=== PATIENT | male | born 1965 | race Caucasian/White ===

== ENCOUNTER → 2018-07-05 12:39 | Outpatient (CLI) | payer OTHER, SELFPAY ==
[2018-07-04 15:54] VITALS: BMI 38.1
--- NOTE | 2018-07-05 13:04 | RAD_ITS ---
STUDY: X-RAY CHEST REASON FOR EXAM: Male, 53 years old. Shortness of breath x 4-5 days. TECHNIQUE: PA and lateral views of the chest. COMPARISON: None. FINDINGS: There is hyperinflation of the lungs, suggesting obstructive lung disease. Subtle 1.5 cm flame-shaped density versus summation artifact in the right apex on the frontal view. A similar density is seen in the mid lung just posterior to the montrell at the level of the minor fissure on the lateral view. There is no demonstrated pleural abnormality. Normal size heart. Normal mediastinum. Borderline left hilar fullness. Normal visualized pulmonary arteries. Normal visualized aortic arch and descending thoracic aorta. Normal visualized thoracic spine. Normal visualized ribs, clavicles, and shoulders. There is no demonstrated abnormality of the visualized soft tissue structures of the upper abdomen. RAD/Chest PA and Lateral IMPRESSION: 1. Hyperexpanded, suggesting obstructive pulmonary disease. 2. No pneumonic infiltrate or CHF. 3. Small, subtle ill-defined densities versus summation artifacts, as described. Comparison with any previous outside studies would be useful. If none are available, one might consider short-term interval follow-up to document clearing or stability. Electronically Signed: Antoni Chi MD at 12:24 EST , Service support ,
[2018-07-05 13:42] LABS: Basophil# 0.04 X10^3/uL; Basophil% 0.5 % (0-1); Mean Corpuscular Volume 86.7 fL (80-94); Monocyte# 1.02 X10^3/uL
[2018-07-05 13:45] LABS: Hematocrit 52.1 % (40-54); Hemoglobin 17.3 g/dl (13.0-16.5); Mean Corp Hgb Conc 33.2 g/gl (32-36); Mean Corpuscular Hgb 28.8 pg (27.0-32.0); Red Blood Count 6.01 M/mm3 (4.6-6.2); White Blood Count 8.2 K/mm3 (4.4-11.0)
[2018-07-05 13:46] LABS: Eosinophils% 0.1 % (0-5); Lymphocyte % 20.4 % (19-41); Monocyte% 12.5 % (0-10); Neutrophil # 5.42 X10^3/uL (2.7-7.7); Neutrophil % 66.4 % (47-70); POSITIVE COUNT NO; POSITIVE DIFFERENTIAL NO; POSITIVE MORPHOLOGY NO; Platelet Count 225 K/mm3 (150-450); RBC Distribution Width CV 13.7 % (11.6-14.6)
[2018-07-05 13:47] LABS: Absolute Neutrophil Count 0.4 X10^3/uL (2.0-7.7); Eosinophil# 0.01 X10^3/uL; Lymphocyte # 1.67 X10^3/ul (4.0)
[2018-07-05 13:48] LABS: Absolute Lymphocyte Count 0.13 X10^3/ul (0.83-4.51)
[2018-07-05 14:13] LABS: BUN 14 mg/dL (7-18); Creatinine, Serum 0.97 mg/dL (0.70-1.30); Glucose 167 mg/dL (74-106)
[2018-07-05 14:14] LABS: Anion Gap 10 (5-15); BUN/Creat Ratio 14.4 RATIO (10-20); Calcium,Total 9.2 mg/dL (8.5-10.1); Chloride 102 mmol/L (98-107); EST Glomerular Filtration Rate 85 mL/min (>60); Est Glom Filt Rate - Afr Amer 103 mL/min (>60); Potassium 4.1 mmol/L (3.5-5.1); Sodium Level 138 mmol/L (136-145)
[2018-07-05 14:25] LABS: BNP,B-Type NATRIURETIC PEPTIDE 7.4 pg/mL (0-100)
[2018-07-05 15:04] LABS: HIV - WCH Non-Reactive (Nonreactive)
[2018-07-06 14:55] LABS: Testosterone, Serum 4226 297 ng/dL (264-916); Treponema palladium Ab (FTA) Non Reactive (Non Reactive)
--- OUTSIDE RECORDS SUMMARY | 2018-08-21 08:03 | XMS RPT_ITS ---
:1965 Author Organization [facility] Care Team Providers Name Role Phone Samson Blair Attending Unavailable Samson Blair Attending Unavailable Samson Blair Referring Unavailable Samson Blair Primary Care Unavailable PROBLEMS PROBLEMS DATE TYPE CONDITION / CODE ATTENDING STATUS SOURCE 07/12/2018 Unknown Z20.2 - Contact Johnnie [facility] with and Community (suspected) Hospital exposure to Repository infections with a predominantly sexual mode of transmission / Z20.2(ICD-10) 07/12/2018 Unknown R06.02 - Shortness Johnnie [facility] of breath / Community R06.02(ICD-10) Hospital Repository 07/12/2018 Unknown R06.00 - Dyspnea, Brown, Samson [facility] unspecified / Community R06.00(ICD-10) Hospital Repository 07/12/2018 Unknown R06.01 - Orthopnea Brown, [facility] / R06.01(ICD-10) [facility] Hospital Repository 07/12/2018 Unknown N52.9 - Male Brown, [facility]on [facility] erectile Community dysfunction, Hospital unspecified / Repository N52.9(ICD-10) PROCEDURES PROCEDURES No Procedure Records FoundRESULTS RESULTS CHEST PA AND LATERAL Observed: 07/05/2018 Status: F Source: SHI 1:04 PM [facility] REPOSITORY [facility] [address] [place] [address] Chest PA and Lateral MR#: [id number] Acct: [id number] Name: SAVANA DAILEY V Rep #: [id number] : 1965 M 53 From: Isaac Chi MD PCP: Samson Blair DO Status: REG CLI Study: Chest PA and Lateral Date of Exam: 07/05/18 Exam# [id number] Ordering Dr: Samson Blair DO STUDY: X-RAY CHEST REASON FOR EXAM: Male, 53 years old. Shortness of breath x 4-5 days. TECHNIQUE: PA and lateral views of the chest. COMPARISON: None. FINDINGS: There is hyperinflation of the lungs, suggesting obstructive lung disease. Subtle 1.5 cm flame-shaped density versus summation artifact in the right apex on the frontal view. A similar density is seen in the mid lung just posterior to the montrell at the level of the minor fissure on the lateral view. There is no demonstrated pleural abnormality. Normal size heart. Normal mediastinum. Borderline left hilar fullness. Normal visualized pulmonary arteries. Normal visualized aortic arch and descending thoracic aorta. Normal visualized thoracic spine. Normal visualized ribs, clavicles, and shoulders. There is no demonstrated abnormality of the visualized soft tissue structures of the upper abdomen. RAD/Chest PA and Lateral IMPRESSION: 1. Hyperexpanded, suggesting obstructive pulmonary disease. 2. No pneumonic infiltrate or CHF. 3. Small, subtle ill-defined densities versus summation artifacts, as described. Comparison with any previous outside studies would be useful. If none are available, one might consider short-term interval follow-up to document clearing or stability. Electronically Signed: Antoni Chi MD at 12:24 EST , Service support , CC: Samson Blair DO Hand Thermal Cutter: Signed CBC W/DIFF, AUTOMATED Collected: 07/05/2018 Status: F Source: SHI 12:47 PM [facility] REPOSITORY TYPE CODE TESTS RESULT OUT OF RANGE REFERENCE UNITS LAB L100.1000 4.4-11.0 K/mm3 Normal WBC 8.2 LAB L100.1200 4.6-6.2 M/mm3 Normal RBC 6.01 LAB L100.1300 13.0-16.5 g/dl High HGB 17.3 LAB L100.1400 40-54 % Normal HCT 52.1 LAB L100.1500 80-94 fL Normal MCV 86.7 LAB L100.1600 27.0-32.0 pg Normal MCH 28.8 LAB L100.1700 32-36 g/gl Normal MCHC 33.2 LAB L100.1810 11.6-14.6 % Normal RDW CV 13.7 LAB L100.1820 35.1-43.9 fl Normal RDW SD 43.0 LAB L100.1900 150-450 K/mm3 Normal PLT 225 LAB L100.2000 6.2-12.0 fl Normal MPV 11.0 LAB L100.2100 47-70 % Normal NEUT% 66.4 LAB L100.2200 19-41 % Normal LY% 20.4 LAB L100.2300 0-10 % High MONO% 12.5 LAB L100.2400 0-5 % Normal EO% 0.1 LAB L100.2500 0-1 % Normal BASO% 0.5 LAB L100.2550 0.0-0.9 % Normal IM GRAN % 0.100 Result Comment: IG% - Immature Granulocytes (promyelocytes, myelocytes and metamyelocytes) > 1% indicates that a LEFT SHIFT is Present. LAB L100.2620 2.0-7.7 X10 3/uL Low Absolute Neut 0.4 LAB L100.2720 0.83-4.51 X10 3/ul Low Absolute Lymph 0.13 Performed By: #### L100.0100 #### [facility] [address] [place], [place], [id number] BASIC METABOLIC Collected: 07/05/2018 Status: F Source: SHI PROFILE (BMP) 12:47 PM [facility] REPOSITORY TYPE CODE TESTS RESULT OUT OF RANGE REFERENCE UNITS LAB L501.0100 74-106 mg/dL High GLU 167 Result Comment: Fasting Glucose result greater than or equal to 126 mg/dL suggests DIABETES MELLITUS per A.D.A. criteria. Please note revised GLUCOSE reference range effective 2017. LAB L501.1000 7-18 mg/dL Normal BUN 14 LAB L501.1100 0.70-1.30 mg/dL Normal CREAT,SERUM 0.97 Result Comment: The validity of the calculated GFR AND GFRAA in patients over 70 years has not been determined. Clinical correlation is essential. LAB L501.1110 >60 mL/min Normal EST GFR 85 Result Comment: Non- GFR Calc LAB L501.1115 >60 mL/min Normal EST GFR - AA 103 Result Comment: GFR Calc LAB L501.1300 10-20 RATIO Normal BUN/CRE 14.4 LAB L501.2200 8.5-10.1 mg/dL CA Normal 9.2 LAB L501.5300 136-145 mmol/L NA Normal 138 LAB L501.5600 3.5-5.1 mmol/L K Normal 4.1 LAB L501.5900 98-107 mmol/L CL Normal 102 LAB L501.6100 21.0-32.0 mmol/L Normal CO2 26.0 LAB L501.6200 5-15 Normal GAP 10 Performed By: #### L500.2500 #### [facility] [address] [facility] [place], [place], [address] BNP,B-TYPE NATRIURETIC Collected: 07/05/2018 Status: F Source: COMPTON PEPTIDE 12:47 PM [facility] REPOSITORY TYPE CODE TESTS RESULT OUT OF RANGE REFERENCE UNITS LAB L503.6620 0-100 pg/mL Normal B-TYPE 7.4 ALEJANDRO PEP Performed By: #### L503.6620 #### [facility] [address] [place], [address] HIV - [facility] Collected: 07/05/2018 Status: F Source: COMPTON 12:47 PM [facility] REPOSITORY TYPE CODE TESTS RESULT OUT OF RANGE REFERENCE UNITS LAB L3890.6005 Nonreactive Normal HIV - [facility] Non-Reactive Performed By: #### L3890.6005 #### [facility] [address] [facility] [facility] [place], [address] TREPONEMA PALLADIUM AB Collected: 07/05/2018 Status: F Source: SHI (FTA) 12:47 PM [facility] REPOSITORY TYPE CODE TESTS RESULT OUT OF RANGE REFERENCE UNITS LAB L801.4400 Non Reactive Normal FTA Non Reactive ABS Result Comment: Performed at: - [facility] [id number] Custodian: Arnulfo Alcaraz PhD, Phone: [phone] Performed By: #### L801.4400, L3100.5200 #### [facility] (refer to report for specific site) refer to report for address and phone number TESTOSTERONE, SERUM 4226 Collected: 07/05/2018 Status: F Source: SHI 12:47 PM [facility] REPOSITORY TYPE CODE TESTS RESULT OUT OF RANGE REFERENCE UNITS LAB L3100.5200 264-916 ng/dL Normal TESTOSTER 4226 297 Result Comment: Adult male reference interval is based on a population of healthy nonobese males (BMI <30) between 19 and 39 years old. Lisa et.al. JCEM 2017,102;9346-8744. PMID: [id number]. Performed By: #### L801.4400, L3100.5200 #### [facility] (refer to report for specific site) refer to report for address and phone number INTERNAL MEDICINE Observed: 07/04/2018 Status: F Source: SHI OFFICE VISIT 4:28 PM [facility] REPOSITORY [facility] Pending sale to [facility] [place] [address] [place] [address] OFFICE VISIT Date of Service: 07/04/18 MR#: [id number] Acct: [id number] Name: SAVANA DAILEY Christine Rep #: [id number] : 1965 Provider: Samson Blair DO Age/Sex: 53/M [place] [facility] [place] Status: Signed Intake Vital Signs07/04/18 Height 5 ft 9.5 in 07/04/18 Weight: 262 lb 07/04/18 Body Mass Index (BMI) 38.1 07/04/18 Blood Pressure 144/83 H 07/04/18 Blood Pressure Location Rt brachial Intake Visit Reasons: EST CARE Chief Complaint: Est Care - Check up - cough Is patient in pain?: No Allergies No Known Allergies Allergy (Unverified 07/04/18 15:56) Medications amoxicillin 500 mg capsule 500 mg PO TID #30 cap 07/04/18 [Rx Confirmed 07/04/18] furosemide 40 mg tablet 40 mg PO DAILY #30 tab 07/04/18 [Rx Confirmed 07/04/18] prednisone 10 mg tablets in a dose pack See Rx Instructions PO PER PKG DIR #21 tab 07/04/18 [Rx Confirmed 07/04/18] PFSH Medical History Seasonal allergies (Acute) Family History Father Cancer Mother Hypertension Social History Smoking Status: Heavy Smoker (>10/day) alcohol intake: never substance use type: does not use what type of physical activity do you participate in: none HPI HPI Chief Complaint: Est Care - Check up - cough Details: SAVANA DAILEY, is a 53 M who presents to the office today for shortness of breath and a chronic cough. He also has some concerns regards to STD exposure and he has had a gonorrhea and a a test for STDs in his urine but has not had any blood work. He is also concerned about sexual dysfunction but the main problem is his progressive shortness of breath he had taken Lasix for fluid retention but is not taken it for several days as he has been out of medication. ROS Const Constitutional: No chills, fatigue, fever(s), frequent falls, malaise, weakness, sleep problems or change in appetite Eyes Eyes: No blurry vision, change in vision, double vision, discharge or visual disturbances ENT ENT: No abnormal hearing, ear pain, ear pressure, tinnitus or dizziness/vertigo Resp Respiratory: Positive for cough Cough: Yes productive and non-productive and shortness of breath; no wheezing Cardio Cardiology: No chest pain at rest, chest pain with exertion, shortness of breath, dyspnea on exertion, generalized swelling, irregular heart rhythm, lightheadedness, orthopnea, fast heart rate or palpitations Gastro GI: No abdominal pain, change in bowel habits, constipation, diarrhea, nausea/dyspepsia or vomiting Genitourinary Male: No difficulty urinating, burning urination, painful urination, urinary incontinence, urinary frequency, urinary urgency, urinary hesitancy, urinary retention, blood in urine, Frequent nighttime urination/ nocturia, sexual problems, testicle lump or testicle pain Musc Musculoskeletal: No joint pain, back pain, joint swelling, limited range of motion, numbness or tingling Skin Skin: No change in skin color, itching, rash or wounds Breast Breast: No breast lump or breast pain Neuro Neurology: No frequent falls, weakness, abnormal hearing, numbness, tingling, unsteady gait/balance, dizziness, loss of vision, memory loss or visual disturbances Psych Psychiatric: No memory loss, No anxiety, No change in appetite, No depression, No Thoughts of harming yourself/Others Endo Endocrine: No fatigue, heat intolerance, increased thirst/drinking, increased hunger or increased urination Aller/Imm Allergy/Immunologic: No wheezing, itchy eyes or seasonal allergy symptoms Osmin/Lymp Hematologic/Lymphatic: No easy bleeding, easy bruising or enlarged lymph nodes Exam Const General: cooperative, in distress mild Nutritional Appearance: well nourished Orientation: oriented x3 HENMT Head: normal to inspection Ears: hearing grossly normal bilaterally Nose: external nose normal Face and sinus: normal facial exam Mouth: oral mucosae normal Teeth and gingiva: dentition normal Throat: posterior oropharynx normal Neck Neck: normal visual inspection, no lymphadenopathy Neck mass: No Thyroid: thyroid normal Resp Effort AND Inspection: symmetric chest movement, normal respiratory effort Auscultation: Bilateral: Diminished Lung Sounds, Expiratory Wheezes Cardio Palpation: normal PMI Rate: regular rate Rhythm: regular rhythm Heart Sounds: S1 normal, S2 normal Skin General: no rashes or lesions noted Extrem General: pedal edema on the left Location: of the foot Severity: pitting and 1+ Psych Appearance: grossly normal Mood: congruent mood Speech and Movement: speech and movement normal Attitude: cooperative Assessment AND Plan Problems 1. Shortness of breath R06.02; R06.00; R06.01 2. Exposure to STD Z20.2 3. Erectile dysfunction N52.9 Plan This patient was seen for checkup but he was significantly dyspneic at this time pulse ox was 92 but he had some expiratory wheezing and he obviously was short of breath is even speaking caused some degree of shortness of breath. He says the cough started about a week ago it is getting worse it is now productive cough I could not appreciate any consolidation just decreased breath sounds and expiratory wheezing. There was no sign of heart failure but he had been taking Lasix at home and stopped it several days ago so in addition to other tests I ordered a BNP to make sure that there was no cardiac involvement and this was primarily a respiratory problem. He also is concerned about STD exposure so tests were ordered and he has had trouble with sexual dysfunction so a testosterone was ordered all of these results will be correlated together and I will be in touch with him as far as further follow-up. Orders Orders: Medications New: Coding Level of Care Code Off vis,est,level 4 Diagnoses Shortness of breath R06.02; R06.00; R06.01 Dyspnea type: shortness of breath Exposure to STD Z20.2 Erectile dysfunction N52.9 07/04/18 1628 <Electronically signed by Samson Blair DO> Date Samson Blair DO Cosigner Signature: Date (if applicable) CC: ALLERGIES ALLERGIES DATE TYPE / CODE NAME / CODE REACTION SEVERITY SOURCE 07/04/2018 Drug No Known Unknown [facility] Allergy/4160 Allergies/F00 Hospital 33544(SNOMED 3000247(RXNOR Repository CT) M) ENCOUNTERS ENCOUNTERS ADMIT/DISCHARGE ACCOUNT ADMITTING ENCOUNTER LOCATION SOURCE NUMBER CLASS 07/05/2018 [id number] Ambulatory [facility] 0 [facility] ing:LAB Repository 07/04/2018/ [id number] Ambulatory BMSBuilding:B Shi 8 1 MS.BIM [facility] Repository PAYERS PAYERS ENCOUNTER GUARANTOR PAYER SUBSCRIBER SOURCE 07/05/2018 SAVANA V Primary SAVANA [facility] [place] [id number] Insurance:MEDICAL BUZASDOB: [id number] [address]Qek: Number: Repository [id number] (HP) Date:[id number] [address] [address]FE: 07/05/2018 Secondary NOT GIVENUNK Shi Insurance:SELF PAY [facility] Number: Effective Repository Date:2018-07-05 07/04/2018 SAVANA V Primary SAVANA [id number] Insurance:MEDICAL BUZASDOB: [facility] XIN [id number] [address]Gcq: Number: Repository [id number] (HP) Date:[id number] [address] [place] [id number]: 07/04/2018 Secondary NOT GIVENUNK [place] Insurance:SELF PAY [facility] Number: Effective Repository Date:2018-06-18
== END ==
PROVIDERS: Family Provider Family Medicine; PCP Family Medicine; Referring Provider Family Medicine; Visit Provider Family Medicine
DX: R06.02 Shortness of breath (principal); R06.00 Dyspnea, unspecified; R06.01 Orthopnea; N52.9 Male erectile dysfunction, unspecified; Z20.2 Contact with and (suspected) exposure to infections with a predominantly sexual mode of transmission
CPT/HCPCS: 36415; 71046; 80048; 83880; 84403; 85025; 86703; 86780

== ENCOUNTER → 2018-10-05 08:00 | Outpatient (CLI) | payer OTHER, SELFPAY ==
[2018-10-04 14:38] VITALS: BMI 39.6
[2018-10-05 13:00] LABS: Glucose 151 mg/dL (74-106)
[2018-10-05 13:03] LABS: Hemoglobin A1c 7.3 % (4.2-6.3)
== END ==
PROVIDERS: Family Provider Family Medicine; PCP Family Medicine; Visit Provider Family Medicine
DX: R73.9 Hyperglycemia, unspecified (principal); R73.09 Other abnormal glucose
CPT/HCPCS: 36415; 82947; 83036

== ENCOUNTER 2019-11-03 04:40 | Inpatient (IN) | payer SELFPAY ==
[2018-10-04 14:38] VITALS: BMI 39.6
[2019-11-03] VITALS (20 sets, daily range): BP systolic 123–178; BP diastolic 76–96; PULSE 100–132; RESP 18–31; TEMP 36.8–37.3; O2SAT 92–98; BMI 33.9; BMI 33.2
--- NOTE | 2019-11-03 04:49 | EKG12_ITS ---
Test Reason : SOB Blood Pressure : / mmHG Vent. Rate : 126 BPM Atrial Rate : 126 BPM P-R Int : 146 ms QRS Dur : 094 ms QT Int : 316 ms P-R-T Axes : 044 024 024 degrees QTc Int : 457 ms Sinus tachycardia Inferior infarct , age undetermined Abnormal ECG Confirmed by YUMIKO OSPINA, TOMMY ([id number]), general expeditor CHONG VILCHIS ([id number]) on 11/04/2019 8:24:23 AM Referred By: CRISTIAN Confirmed By:TOMMY CALDERON MD
--- NOTE | 2019-11-03 04:50 | ED.VIS.GEN ---
History of Present Illness Chief Complaint: Shortness of Breath Informant: Patient Onset: Weeks - Onset approximately a week ago Context: Sudden Onset Timing: Continuous Quality: Chest discomfort and shortness of breath Location: Respiratory Current Severity: Moderate Maximum Severity: Severe Worsened by: Walking Relieved by: Nothing Associated Symptoms: Productive cough brown sputum initially now white/green Narrative: Patient is a middle-age male with diet-controlled diabetes who presents with shortness of breath and cough. Onset of illness 1 week ago. He states he has been working in the [employer]. He states he has not been in contact with anyone to his knowledge that has had an upper respiratory infection. He is a smoker. He denies fever or chills. Denies change in smell or taste. Does report congestion. He denies nausea, vomiting or diarrhea. He denies abdominal pain. He denies decreased urine output. He denies arthralgias or swelling of joints. He denies symptoms of claudication. Patient was winded walking from triage to room 3. He was gasping for breath leaning over the sink in room 3. Prior similar symptoms: No Recent Illness/Hospitalization: No - Past Medical History (1) Erectile dysfunction Status: Chronic (2) Tobacco abuse Status: Chronic Past Medical History - Allergies and Home Meds Allergies/Adverse Reactions: Allergies No Known Allergies Allergy (Verified 11/03/19 05:48) Primary Care Physician: Samson Blair DO [Primary Care Provider] - Prior records reviewed: Yes Surgical History: noncontributory Lives: Spouse/ Significant Other Smoking Status: Current every day smoker Alcohol: Rare Drugs: None Review of Systems General: Reports: Malaise. Denies: Chills, Fever, Subjective, Sweats Eyes: Denies: Visual changes - bilaterally, Blurred Vision - bilaterally ENT: Denies: Bilateral ear pain, Rhinorrhea, Sore throat Cardiovascular: Reports: Chest pain, Palpitations, Heart racing Respiratory: Reports: Dyspnea, Cough, Sputum, Dyspnea on exertion. Denies: Orthopnea, Paroxysmal nocturnal dyspnea Gastrointestinal: Denies: Abdominal pain, Nausea, Vomiting, Diarrhea, Melena, Hematochezia Genitourinary: Denies: Dysuria, Hematuria, Frequency Musculoskeletal: Denies: Myalgias, Arthralgias, Neck pain, Back pain, Extremity Pain Skin: Denies: Rash, Wounds Neurological: Reports: Weakness. Denies: Headache, Parasthesia Endocrine: Denies: Polyuria, Polydipsia Hematologic: Denies: Easy bruising, Easy bleeding Physical Exam Vital Signs/Narrative: Vital Signs Temp Pulse Resp Pulse Ox 11/03/19 04:40 99.1 F 132 H 30 H 94 Inital Vital Signs reviewed: Yes General: Well nourished, Well developed, Obese, Acute Distress Head: Normocephalic, Atraumatic. Negative for: Trauma, Tenderness Eyes: Perrl, EOMI. Negative for: Pale conjunctiva, Scleral icterus ENT: Moist mucous membranes, TM's clear. Negative for: No rhinorrhea Neck: Supple, Nontender, No lymphadenopathy, No JVD Cardiovascular: Regular rhythm, No murmurs, Normal S1, Normal S2, Tachycardia Respiratory: Chest nontender, Rales - And inspiratory rales left base., Decreased Air Movement, - - There is egophony posterior right midlung field and posterior left lower lung field. There is also tactile fremitus noted.. Negative for: No distress, CTA bilaterally, Rhonchi, Wheezing Abdomen: Soft, Nontender, Nondistended, Normal bowel sounds, No masses Rectal: Deferred Back: Nontender, Normal Inspection. Negative for: CVA tenderness Extremities: Nontender, No edema Skin: No Trauma, - - Patient has mild mottling of the skin with delayed capillary refill.. Negative for: Normal color, Cyanosis, Diaphoresis, Jaundice Neurological: Alert, Oriented x3, Cranial nerves II-XII grossly intact, Normal Strength, Normal Sensation, Normal Gait Psychological: Normal affect Diagnostic/Tx/Re-eval Chest X-Ray - ED: 1 View, Read by ED Physician, - - The cardiac silhouette is slightly obscured on the right side. The left hemidiaphragm is not visualized. These are new changes compared to x-ray performed June 2018. There also appears to be a peripheral right mid lung infiltrate/cavitary lesion. There is a peripheral density noted on the left side and concerned this may represent a Castillo's hump or may represent a loculated effusion. Time of interpretation 521. Impressions Chest X-Ray 11/03/19 05:00 IMPRESSION: 3.6 cm oval lesion right lateral midlung, suspicious for a cavitary mass. Moderate left pleural effusion with adjacent atelectasis. CT chest with IV contrast recommended to more definitively evaluate these findings. Electronically Signed: Rocky Handy, at 5:33 EDT Tel , Service support , ADDENDUM: 11/03/19 0543 IMPRESSION: 3.6 cm oval lesion right lateral midlung, suspicious for a cavitary mass. Moderate left pleural effusion with adjacent atelectasis. CT chest with IV contrast recommended to more definitively evaluate these findings. N.B. : Bart Mcwilliams MD, confirmed on 11/03/2019 05:36:02 (ET) that the referring physician received the radiology report. Electronically Signed: Rocky Handy, at 5:33 EDT Tel , Service support , Chest CT 11/03/19 05:51 IMPRESSION: 2 cavitary lesions in the right upper lobe, largest 3.9 cm diameter. Differential includes cavitary bacterial pneumonia, tuberculosis, metastatic disease, with noninfectious inflammatory process less likely. Pleural-based lesion lateral segment right middle lobe may represent an additional noncavitary nodule or rounded atelectasis/scarring. Likely loculated small left pleural effusion. Mild mediastinal and right hilar lymphadenopathy. Underlying mild emphysema and bronchitis. Electronically Signed: Rocky Handy, at 6:33 EDT Tel , Service support , 11/03/19 05:00 Chest 1 View (Portable) [RAD] Stat 11/03/19 05:51 CT Chest [Chest WITH Contrast] [CT] Stat Laboratory Results 11/03/19 11/03/19 11/03/19 05:03 05:03 05:03 WBC 20.7 H RBC 5.73 Hgb 16.0 Hct 48.9 MCV 85.3 MCH 27.9 MCHC 32.7 RDW Std Deviation 39.1 RDW Coeff of Corine 12.6 Plt Count 457 H MPV 10.1 Immature Gran % (Auto) 0.600 Neut % (Auto) 74.2 H Lymph % (Auto) 13.1 L [place] % (Auto) 11.8 H Eos % (Auto) 0.1 Baso % (Auto) 0.2 Absolute Neuts (auto) 15.3 H Absolute Lymphs (auto) 2.71 Nucleated RBC % 0 Differential Comment SCANNED Diff Path Review May foll PT 14.3 INR 1.2 APTT 34.4 Sodium 132 L Potassium 3.9 Chloride 98 Carbon Dioxide 25.0 Anion Gap 9 BUN 13 Creatinine 0.90 Estim Creat Clear Calc 101.79 Est GFR (MDRD) Af Amer 113 Est GFR (MDRD) Non-Af 93 BUN/Creatinine Ratio 14.5 Glucose 183 H Lactic Acid Calcium 9.2 Total Bilirubin 0.70 AST 22 ALT 35 Alkaline Phosphatase 103 Troponin I Total Protein 8.6 H Albumin 2.9 L Globulin 5.7 H Albumin/Globulin Ratio 0.5 L 11/03/19 11/03/19 05:03 05:03 WBC RBC Hgb Hct MCV MCH MCHC RDW Std Deviation RDW Coeff of Corine Plt Count MPV Immature Gran % (Auto) Neut % (Auto) Lymph % (Auto) [place] % (Auto) Eos % (Auto) Baso % (Auto) Absolute Neuts (auto) Absolute Lymphs (auto) Nucleated RBC % Differential Comment Diff Path Review PT INR APTT Sodium Potassium Chloride Carbon Dioxide Anion Gap BUN Creatinine Estim Creat Clear Calc Est GFR (MDRD) Af Amer Est GFR (MDRD) Non-Af BUN/Creatinine Ratio Glucose Lactic Acid 1.8 Calcium Total Bilirubin AST ALT Alkaline Phosphatase Troponin I < 0.015 Total Protein Albumin Globulin Albumin/Globulin Ratio - Rhythm Strip Rhythm Strip: Sinus Tach Rate: 133 Ectopy: None - EKG Initial EKG Interpretation: Sinus Tachycardia - Sinus tachycardia with a ventricular rate of 126. [place] interval is 146 ms. QRS duration 94 ms. QT duration 316 ms. Wilcox is normal. There is artifact which is secondary to patient's respiratory distress. - Medical Decision Making With respiratory symptoms tachycardia tachypnea differential includes acute bronchitis, viral upper respiratory infection, bacterial pneumonia, congestive heart failure, COVID 19. Sepsis order set was initiated. He did not receive a fluid bolus since he is not hypotensive. After interpreting chest x-ray differential includes malignancy, abscess, necrotic abscess on the right, loculated pleural effusion that may represent an empyema. The radiologist called to make sure I was aware of x-ray findings. Since he agrees that the lesion on the right side may represent a cavitary lesion patient was treated with 1 g of Rocephin, 500 mg azithromycin for typical and atypical respiratory pathogens and clindamycin for anaerobic coverage. Blood work is remarkable for an elevated blood sugar. PT/INR and PTT are unremarkable. White count is elevated at 20.7 thousand. Lactate is normal. The CT with IV contrast of the chest reveals a cavitary lesion right. There is a solitary mass noted inferior and posterior to the cavitary lesion and there appears to be nodules left lower lobe as well as loculated effusion, atelectasis and possible infiltrate. Awaiting formal read by radiologist. The hospitalist was paged at [phone]. The hospitalist called me back and suggested the patient should be transferred. Spoke with Dr. Pernell Blair on-call for ICU/pulmonology. He was informed the patient's history and physical. He felt the patient could be kept at [facility] and treated here. - Critical Care Time Critical care time (excluding procedures): 30-74 minutes - 33, Discussing w/Patient &/or Family/[employer], Discussing w/Consultants, Arranging Admission or Transfer ED Disposition - Plan for ED Patient: Diagnosis: Pulmonary cavitary lesion, Loculated pleural effusion, Sepsis without acute organ dysfunction, Acute hyperglycemia, Sinus tachycardia by electrocardiogram Referrals: Samson Blair DO [Primary Care Provider] -
--- NOTE | 2019-11-03 05:00 | RAD_ITS ---
ACR Level 3 findings have been noted. An addendum which confirms receipt of the report will follow. STUDY: X-RAY CHEST REASON FOR EXAM: Male, 54 years old. Productive cough. TECHNIQUE: AP portable upright COMPARISON: 07/05/2018 CXR FINDINGS: 3.6 cm diameter oval lesion in the right lateral midlung, with heterogenous increased density inferiorly and decreased density on the upper aspect. New compared to prior. Moderate left pleural effusion with adjacent atelectasis also new compared to prior. No apparent pneumothorax. Heart size within normal limits. Trachea is midline. RAD/Chest 1 View (Portable) IMPRESSION: 3.6 cm oval lesion right lateral midlung, suspicious for a cavitary mass. Moderate left pleural effusion with adjacent atelectasis. CT chest with IV contrast recommended to more definitively evaluate these findings. Electronically Signed: Rocky Handy, at 5:33 EDT Tel , Service support ,
[2019-11-03] MEDS: 0.9% Normal Saline 1,000 ML 150 ML IV (05:05)
[2019-11-03 05:36] LABS: Absolute Lymphocyte Count 2.71 X10^3/uL (0.83-4.51); Absolute Neutrophil Count 15.3 X10^3/uL (2.0-7.7); Basophil# 0.04 X10^3/uL; Basophil% 0.2 % (0-1); Eosinophil# 0.03 X10^3/uL; Eosinophils% 0.1 % (0-5); Hematocrit 48.9 % (40-54); Lymphocyte # 2.71 X10^3/ul (4.0); Lymphocyte % 13.1 % (19-41); Mean Corp Hgb Conc 32.7 g/dL (32-36); Mean Corpuscular Hgb 27.9 pg (27.0-32.0); Mean Corpuscular Volume 85.3 fL (80-94); Mean Platelet Vol. 10.1 fl (6.2-12.0); Monocyte# 2.44 X10^3/uL; Monocyte% 11.8 % (0-10); NRBC Flagged by Analyzer 0 % (0-5); Neutrophil # 15.31 X10^3/uL (2.7-7.7); Neutrophil % 74.2 % (47-70); POSITIVE DIFFERENTIAL YES; Platelet Count 457 K/mm3 (150-450); RBC Distribution Width CV 12.6 % (11.6-14.6); RBC Distribution Width SD 39.1 fl (35.1-43.9); Red Blood Count 5.73 M/mm3 (4.6-6.2); White Blood Count 20.7 K/mm3 (4.4-11.0)
[2019-11-03 05:37] LABS: Differential Indicated SCAN CRITERIA MET
--- NOTE | 2019-11-03 05:49 | ED.RN ---
Dr. Mcwilliams called and updated of test results and plan of care at this time
[2019-11-03 05:50] LABS: ALB/GLOB Ratio 0.5 RATIO (0.9-2.4); AST(SGOT) 22 U/L (15-37); Alanine Aminotransfer ALT/SGPT 35 U/L (16-61); Albumin, Serum 2.9 g/dL (3.2-5.0); Alkaline Phosphatase 103 U/L (45-117); Anion Gap 9 (5-15); BUN 13 mg/dL (7-18); BUN/Creat Ratio 14.5 RATIO (10-20); Calcium,Total 9.2 mg/dL (8.5-10.1); Chloride 98 mmol/L (98-107); EST Glomerular Filtration Rate 93 mL/min (>60); Est Glom Filt Rate - Afr Amer 113 mL/min (>60); Estimated Creatinine Clearance 101.79 ml/min; Globulin 5.7 g/dL (2.2-4.2); Glucose 183 mg/dL (74-106); Potassium 3.9 mmol/L (3.5-5.1); Protein, Total 8.6 g/dL (6.4-8.2); Sodium Level 132 mmol/L (136-145)
--- NOTE | 2019-11-03 05:51 | CT_ITS ---
STUDY: CT CHEST WITH CONTRAST REASON FOR EXAM: Male, 54 years old. Cough, shortness of breath and elevated WBC. RADIATION DOSAGE (If Supplied By Facility): CTDIvol = ( 16.53 ) mGy, DLP = ( 757.11 ) mGycm TECHNIQUE: Transaxial imaging was performed following intravenous administration of IV 100mL [id number]-[id number]. Individualized dose optimization techniques were used for this CT. COMPARISON: Chest radiograph earlier same date. FINDINGS: Heart and great vessels: Heart size normal. No dissection or aneurysm of the thoracic aorta. Lungs, pleura: 3.5 x 3.9 x 3.4 cm TRV X AP X craniocaudad thick walled cavitary mass within air-fluid level in the posterior segment of the right upper lobe. 1.8 cm diameter spiculated lesion with a small area of cavitation anteriorly more cephalad in the apical segment of the right upper lobe. 2.1 cm diameter tubular/nodular opacity in the lateral segment of the right middle lobe extending to the pleura. Small left basilar pleural effusion which has simple density but does not layer dependently but rather wraps around the left lung base. 8 mm pleural-based nodule lateral aspect of the superior lingula. Mild underlying emphysema. No pneumothorax. Mild bilateral bronchial wall thickening. Mediastinum: Mild paratracheal, AP window, and right hilar lymphadenopathy. No lymph node necrosis. Normal esophagus. Osseous:No fracture or acute osseous abnormality. Chest wall: No concerning findings. Upper abdomen: Bilateral nonmass-like adrenal gland thickening. CT/Chest WITH Contrast IMPRESSION: 2 cavitary lesions in the right upper lobe, largest 3.9 cm diameter. Differential includes cavitary bacterial pneumonia, tuberculosis, metastatic disease, with noninfectious inflammatory process less likely. Pleural-based lesion lateral segment right middle lobe may represent an additional noncavitary nodule or rounded atelectasis/scarring. Likely loculated small left pleural effusion. Mild mediastinal and right hilar lymphadenopathy. Underlying mild emphysema and bronchitis. Electronically Signed: Rocky Handy, at 6:33 EDT Tel , Service support ,
[2019-11-03 05:57] LABS: International Normalized Ratio 1.2; Prothrombin Time (Protime)PT. 14.3 SECONDS (11.7-14.9)
[2019-11-03 05:58] LABS: Partial Thromboplast Time 34.4 Seconds (24.1-36.2)
[2019-11-03 06:09] LABS: Lactic Acid 1.8 mmol/L (0.4-1.9)
[2019-11-03] MEDS: Ceftriaxone 1 GM/50 ML BAG IV (06:20)
[2019-11-03 06:23] LABS: Bacteria 0 SEEN /hpf (None Seen); Mucous, Urine 0 SEEN /hpf (<or=2+); Red Blood Cells-Urine 0 SEEN /hpf (0-5); Squamous Epithelial Cells - UA 0 SEEN /hpf (0-5); White Blood Cells 0 SEEN /hpf (0-5)
[2019-11-03 06:26] LABS: Differential Comment SCANNED
[2019-11-03 06:31] LABS: Color, Urine Yellow (Yellow); Glucose, Dipstick Normal (Normal); Ketone-Dipstick 50 mg/dl (Negative); Leukocyte Esterase-Dipstick Negative /ul (Negative); Nitrite-Dipstick Negative (Negative); Occult Blood-Urine 10 /ul (Negative); Protein-Dipstick 30 mg/dl (Negative); Specific Gravity, Urine 1.015 (1.002-1.030); Urine Bilirubin Dipstick Negative (Negative); Urine Clarity Clear (Clear); Urine Urobilinogen 1 mg/dl (Normal)
--- NOTE | 2019-11-03 07:32 | NURSING ---
PCU TERELETSKY CAVITARY LESION LUNG, LOCULATED EFFUSION, SEPSIS WITHOUT ENDORGAN INJURY
--- NOTE | 2019-11-03 08:31 | PCM.CONS.PUL ---
Reason for Consult Date of Consultation: 11/03/19 Reason for Consultation: Questionable pulmonary abscess History of Present Illness: The patient is a 54-year-old male, with a history as outlined below, who presented to the emergency department on November 02 with complaints of gradually progressive shortness of breath over the course of the last week with an associated productive cough of brown sputum and chest tightness. The patient has never been formally diagnosed with COPD. However, he does have an approximate [id number] smoking history, but states that he quit 2 days prior to his hospital admission. The patient denies any fevers or chills. 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 The patient denies any night sweats or sick contact exposure. The patient denies ever having been diagnosed with TB. He denies any TB exposures. He has never been incarcerated. The patient does not consume alcohol on a regular basis. He denies any issues with dysphasia or jaun aspiration. On presentation to the emergency department, the patient was noted to be afebrile, but was tachycardic and tachypneic. He was maintaining appropriate oxygen saturations on room air. Laboratory evaluation revealed an elevated white blood cell count to 20,000. Platelet count was elevated to 457,000. Coagulation profile was within normal limits. Chemistry profile was unrevealing. Lactate was within normal limits. Urine analysis was unremarkable. A CTA chest was subsequently obtained and revealed cavitary lesions within the right upper lobe and right middle lobe. There was also evidence of an 8 mm pleural-based nodule within the lingula. There also appeared to be a small left-sided loculated pleural effusion. The patient was placed on empiric antimicrobial therapy and admitted to the progressive care unit for further management. Past Medical History Past Medical History (Chronic Problems): Chronic Problems (Last Reviewed 10/04/18 @ 14:[address] Samson Blair DO) Erectile dysfunction (Chronic) Tobacco abuse (Chronic) Medical History: Medical History (Last Reviewed 10/04/18 @ 14:[address] Samson Blair DO) Seasonal allergies J30.2 Allergies No Known Allergies Allergy (Verified 11/03/19 05:48) Home Medications: Ambulatory Orders Medication Instructions Recorded furosemide 40 mg tablet 40 mg PO DAILY #30 tab 07/04/18 Surgical History: noncontributory Lives: Spouse/ Significant Other Smoking Status: Current every day smoker Alcohol: Rare Drugs: None - *Family History Maternal Family History: Family History (Last Reviewed 10/04/18 @ 14:[address] Samson Blair DO) Father Cancer Mother Hypertension History Items: Heart Disease Paternal Family History: Family History (Last Reviewed 10/04/18 @ 14:[address] Samson Blair DO) Father Cancer Mother Hypertension History Items: Cancer - Lung cancer Review of Systems Constitutional: Denies: Chills, Fever, Night Sweats, Weight Change Eyes: Denies: Blurred vision, Double vision HEENT: Denies: Difficulty Swallowing, Head Aches, Sinus Congestion, Sinus Drainage Cardiovascular: Reports: Chest Tightness Respiratory: Reports: Cough, Shortness of Breath, Sputum production Gastrointestinal: Denies: Abdominal Pain, Nausea, Vomiting Genitourinary: Denies: Dysuria Musculoskeletal: Denies: Joint Pain, Joint Tenderness Skin: Denies: Rash, Wounds Neurological: Denies: Numbness, Tingling, Focal weakness Psychiatric: Denies: Anxiety, Depression, Homicidal Ideations, Suicidal Ideations Hematologic/ Lymphatic: Denies: Easy Bruising, Easy Bleeding Patient Problems: Active and Suspected Problems (Last Reviewed 10/04/18 @ 14:[address] Samson Blair DO) Pulmonary cavitary lesion (Acute) Loculated pleural effusion (Acute) Sepsis without acute organ dysfunction (Acute) Acute hyperglycemia (Acute) Sinus tachycardia by electrocardiogram (Acute) Cough productive of purulent sputum (Acute) Chest congestion (Acute) Objective: The patient's most recent lab work, culture data and imaging studies have all been personally reviewed. Respiratory viral panel, strep and urine Legionella antigens are pending. Blood, urine and sputum cultures are pending. - Physical Exam Vitals/I&O's: Vital Signs Temp Pulse Resp BP Pulse Ox 98.5 F 108 H 30 H 143/84 H 97 11/03/19 07:11 11/03/19 07:11 11/03/19 07:11 11/03/19 07:11 11/03/19 07:11 Oxygen Delivery Method Room Air Weight: 250 lb Body Mass Index (BMI) 33.9 Intake and Output for Last 24 Hours 11/01/19 11/02/19 11/03/19 23:59 23:59 23:59 Intake Total 659 / 659 Balance 659 / 659 General: Alert, Cooperative, No apparent distress HEENT: Atraumatic, PERRLA, Normocephalic Oral: No Gingival or Mucosal Lesions/ Ulcerations Neck: Supple, No Nodes, Trachea Midline Lungs: No rhonchi, No wheeze, No rales, Diminished, - - No conversational dyspnea or accessory muscle use. Cardiovascular: Normal S1, Normal S2, No murmurs, Tachycardic Abdomen: Bowel Sounds Present, Soft, Non Tender, Obese Extremities: No clubbing, No cyanosis, No edema Skin: - - Chronic venous stasis changes of lower extremities Musculoskeletal: No Muscle Wasting Lymphatic: No Cervical, Supraclavicular, or Inguinal Adenopathy Neurological: Cranial nerves II-XII grossly intact, Neuro grossly intact Psych/Mental Status: Alert and oriented to time, place, person, mood and affect Labs (Last 48 Hours) 11/03/19 11/03/19 11/03/19 05:03 05:03 05:03 WBC 20.7 H RBC 5.73 Hgb 16.0 Hct 48.9 MCV 85.3 MCH 27.9 MCHC 32.7 RDW Std Deviation 39.1 RDW Coeff of Corine 12.6 Plt Count 457 H MPV 10.1 Immature Gran % (Auto) 0.600 Neut % (Auto) 74.2 H Lymph % (Auto) 13.1 L Tucker % (Auto) 11.8 H Eos % (Auto) 0.1 Baso % (Auto) 0.2 Absolute Neuts (auto) 15.3 H Absolute Lymphs (auto) 2.71 Nucleated RBC % 0 Differential Comment SCANNED Diff Path Review November foll PT 14.3 INR 1.2 APTT 34.4 Sodium 132 L Potassium 3.9 Chloride 98 Carbon Dioxide 25.0 Anion Gap 9 BUN 13 Creatinine 0.90 Estim Creat Clear Calc 101.79 Est GFR (MDRD) Af Amer 113 Est GFR (MDRD) Non-Af 93 BUN/Creatinine Ratio 14.5 Glucose 183 H Lactic Acid Calcium 9.2 Total Bilirubin 0.70 AST 22 ALT 35 Alkaline Phosphatase 103 Troponin I Total Protein 8.6 H Albumin 2.9 L Globulin 5.7 H Albumin/Globulin Ratio 0.5 L Urine Color Urine Clarity Urine pH Ur Specific [place] Urine Protein Urine Glucose (UA) Urine Ketones Urine Occult Blood Urine Nitrite Urine Bilirubin Urine Urobilinogen Ur Leukocyte Esterase Urine RBC Urine WBC Ur Squamous Epith Cells Urine Bacteria Urine Mucus 11/03/19 11/03/19 11/03/19 05:03 05:03 06:15 WBC RBC Hgb Hct MCV MCH MCHC RDW Std Deviation RDW Coeff of Corine Plt Count MPV Immature Gran % (Auto) Neut % (Auto) Lymph % (Auto) [place] % (Auto) Eos % (Auto) Baso % (Auto) Absolute Neuts (auto) Absolute Lymphs (auto) Nucleated RBC % Differential Comment Diff Path Review PT INR APTT Sodium Potassium Chloride Carbon Dioxide Anion Gap BUN Creatinine Estim Creat Clear Calc Est GFR (MDRD) Af Amer Est GFR (MDRD) Non-Af BUN/Creatinine Ratio Glucose Lactic Acid 1.8 Calcium Total Bilirubin AST ALT Alkaline Phosphatase Troponin I < 0.015 Total Protein Albumin Globulin Albumin/Globulin Ratio Urine Color Yellow Urine Clarity Clear Urine pH 5.0 Ur Specific [place] 1.015 Urine Protein 30 H Urine Glucose (UA) Normal Urine Ketones 50 H Urine Occult Blood 10 H Urine Nitrite Negative Urine Bilirubin Negative Urine Urobilinogen 1 H Ur Leukocyte Esterase Negative Urine RBC 0 SEEN Urine WBC 0 SEEN Ur Squamous Epith Cells 0 SEEN Urine Bacteria 0 SEEN Urine Mucus 0 SEEN Clinical Impression(s) from Imaging Studies Chest X-Ray 11/03/19 05:00 IMPRESSION: 3.6 cm oval lesion right lateral midlung, suspicious for a cavitary mass. Moderate left pleural effusion with adjacent atelectasis. CT chest with IV contrast recommended to more definitively evaluate these findings. Electronically Signed: Rufinoluz Ole, at 5:33 EDT Tel , Service support , ADDENDUM: 11/03/19 0543 IMPRESSION: 3.6 cm oval lesion right lateral midlung, suspicious for a cavitary mass. Moderate left pleural effusion with adjacent atelectasis. CT chest with IV contrast recommended to more definitively evaluate these findings. N.B. : Bart Mcwilliams MD, confirmed on 11/03/2019 05:36:02 (ET) that the referring physician received the radiology report. Electronically Signed: Rocky Handy, at 5:33 EDT Tel , Service support , Chest CT 11/03/19 05:51 IMPRESSION: 2 cavitary lesions in the right upper lobe, largest 3.9 cm diameter. Differential includes cavitary bacterial pneumonia, tuberculosis, metastatic disease, with noninfectious inflammatory process less likely. Pleural-based lesion lateral segment right middle lobe may represent an additional noncavitary nodule or rounded atelectasis/scarring. Likely loculated small left pleural effusion. Mild mediastinal and right hilar lymphadenopathy. Underlying mild emphysema and bronchitis. Electronically Signed: Rocky Handy, at 6:33 EDT Tel , Service support , Current Medications Albuterol Sulfate (Ventolin Aerosols) 2.5 mg INHALATION Q2H PRN PRN PRN Reason: DYSPNEA Albuterol/Ipratropium (Duoneb) 3 ml INHALATION Q6HWA.RT KATHARINE Furosemide (Lasix) 40 mg PO DAILY KATHARINE Heparin Sodium (Porcine) (Heparin Na) 5,000 unit SC Q12 KATHARINE Sodium Chloride () 1,000 mls @ 150 mls/hr IV .Q6H40M [facility] Last Infusion: 11/03/19 06:40 Dose: 150 mls/hr Documented by: Piperacillin Sod/Tazobactam (Sod 3.375 gm/ Sodium Chloride) 50 mls @ 12.5 mls/hr IV Q8 KATHARINE Vancomycin IV Pharmacy to Dose (1 ea/ Sodium Chloride) 500 mls @ 250 mls/hr IV X1 PRN; Protocol PRN Reason: Rx to Dose Ondansetron HCl (Zofran) 4 mg IV Q8H PRN PRN PRN Reason: NAUSEA/VOMITING Potassium Chloride (K-Dur) 20 meq PO DAILYCM [facility] Assessment/Plan All Active Problems (Last Reviewed 10/04/18 @ 14:[address] Samson Blair, DO) Pulmonary cavitary lesion (Acute) Loculated pleural effusion (Acute) Sepsis without acute organ dysfunction (Acute) Acute hyperglycemia (Acute) Sinus tachycardia by electrocardiogram (Acute) Cough productive of purulent sputum (Acute) Chest congestion (Acute) RECOMMENDATIONS: 1. Continue empiric antimicrobials for now. 2. Consider ultrasound-guided thoracentesis of left pleural space, if feasible. 3. Obtain respiratory viral panel and send sputum for culture. 4. Consider ID consult. 5. Encourage incentive spirometer use and mobilize patient as tolerated. IMPRESSIONS: 1. Sepsis secondary to community-acquired pneumonia The patient presented to the hospital with shortness of breath and productive cough. Given the findings noted on CT chest, the patient will be started on broad-spectrum antimicrobials, pending infectious work-up. He remains hemodynamically stable, nonetheless. 2. Cavitary lung lesions The lesions noted on CT chest could certainly be infectious or malignant in nature. The patient has no TB exposure history. For now, the patient will be treated with broad-spectrum antimicrobials. Repeat chest imaging will undoubtedly need to be completed in 6 to 8 weeks. If these lesions do not begin to resolve with treatment, would at that time consider malignant work-up. 3. History of tobacco dependency with questionable underlying obstructive lung disease Given the patient's extensive tobacco abuse history, I cannot discount the possibility that he is currently experiencing an exacerbation of possible obstructive lung disease. Therefore, the patient will be continued empirically on scheduled bronchodilators and prednisone daily. Smoking cessation counseling was provided to the patient. He would likely benefit from outpatient pulmonary follow-up and baseline PFTs. This note was generated with [employer] software. It may contain incorrect words, spelling, and punctuation that were not noted in checking the note before signing. Inpatient E&M: 56932 Init Hosp L3
[2019-11-03] MEDS: Heparin Injection (Vial) 5,000 UNIT/ML VIAL 5000 UNIT SC ×2 (09:18→22:24)
[2019-11-03] MEDS: Furosemide 40 MG Tablet PO (09:18)
--- NOTE | 2019-11-03 09:36 | PCM.HP.STD ---
Problem List (1) Cough productive of purulent sputum Status: Acute (2) Chest congestion Status: Acute History of Present Illness Date of Admission: 11/03/19 Chief Complaint: Productive cough, chest congestion The patient is a 54 year old M who was seen in the emergency room at [facility] with a chief complaint of cough productive of brown sputum with some blood tinges x1 week, chest congestion x1 week, and increased shortness of breath over the last 24 hours. Patient denied any fever or chills. Patient denied any sick contacts. Patient has a history of smoking-he stopped 2 days ago, patient denies alcohol usage. Work-up in the emergency room included a chest x-ray which showed evidence of a oval lesion in the right lateral midlung which was 3.6 cm in diameter, there is also noted to be a moderate left pleural effusion with adjacent atelectasis. CT of the chest was carried out which showed 2 cavitary lesions in the right upper lobe, the largest 3.9 cm in diameter, there is also noted to be a pleural-based lesion in the lateral segment of the right middle lobe which might represent an additional non-cavitary nodule or rounded atelectasis/scarring, there is also noted to be a loculated small left pleural effusion, underlying mild emphysema was noted to be likely. Labs revealed an elevated white blood cell count of 20.7, patient's chemistry panel was unremarkable except for a glucose of 183, patient's urinalysis was unremarkable. Patient was noted to be tachycardic and tachypneic, his pulse ox on room air however was 94%. Patient was afebrile. Blood cultures were obtained, respiratory panel was obtained, patient was admitted to PCU with a diagnosis of community-acquired severe pneumonia. It was felt that the patient was not at risk for coronavirus infection and this test was not ordered. Pulmonary medicine was contacted and they will see the patient in consultation, the case was discussed with pulmonary medicine. Past Medical History Past Medical History (Chronic Problems): Chronic Problems (Last Reviewed 10/04/18 @ 14:[address] Samson Blair DO) Erectile dysfunction (Chronic) Tobacco abuse (Chronic) Medical History: Medical History (Last Reviewed 10/04/18 @ 14:[address] Samson Blair DO) Seasonal allergies J30.2 Allergies No Known Allergies Allergy (Verified 11/03/19 05:48) Home Medications: Ambulatory Orders Medication Instructions Recorded furosemide 40 mg tablet 40 mg PO DAILY #30 tab 07/04/18 Psychiatric History: No pertinent psych hx Lives: Spouse/ Significant Other Smoking Status: Current every day smoker Tobacco Use: Cigarettes Alcohol: None Drugs: None - *Family History Maternal Family History: Family History (Last Reviewed 10/04/18 @ 14:[address] Samson Blair DO) Father Cancer Mother Hypertension History Items: Heart Disease Paternal Family History: Family History (Last Reviewed 10/04/18 @ 14:[address] Samson Blair DO) Father Cancer Mother Hypertension History Items: Cancer - Lung cancer Review of Systems Constitutional: Denies: Anorexia, Chills, Fever, Night Sweats, Malaise, Weakness, Weight Change, Fatigue Eyes: Denies: Blurred vision, Cataracts, Conjunctivae Inflammation, Double vision HEENT: Denies: Difficulty Swallowing, Dysphasia, Ear Pain, Eye Pain, Hearing Changes, Nasal bleeding, Nasal Congestion, Post Nasal Drip Cardiovascular: Denies: Chest Pain, Claudication, Chest Pressure, Chest Tightness, Edema, Palpitations Respiratory: Reports: Cough, Hemoptysis, Shortness of Breath, Shortness of breath at rest, Shortness of breath upon exertion, Sputum production Gastrointestinal: Denies: Abdominal Pain, Constipation, Diarrhea, Hematemesis, Hematochezia, Nausea, Melena, Vomiting Genitourinary: Denies: Dysuria, Frequency, Hematuria, Hesitancy, Urgency Musculoskeletal: Denies: Back Pain, Foot Pain, Hand Pain, Joint Pain, Joint stiffness, Joint swelling, Joint Tenderness, Leg Pain Skin: Denies: Dryness, Pruritis, Rash Neurological: Denies: Blurred vision, Double vision, Change in Speech, Slurred speech, Difficulty swallowing, Focal weakness, Headaches, Incoordination, Numbness, Tingling Psychiatric: Denies: Anxiety, Depression, Homicidal Ideations, Suicidal Ideations Endocrine: Denies: Change in Body Habitus, Heat/ Cold Intolerance, Polydipsia, Polyuria Hematologic/ Lymphatic: Denies: Adenopathy, Anemia, Easy Bruising, Easy Bleeding, Petechiae, Purpura VTE Information - Inpt Only VTE Present on Admission: No VTE Mechan Device Prophylaxis: None VTE Pharm Prophylaxis ordered?: Yes Patient Problems: Active and Suspected Problems (Last Reviewed 10/04/18 @ 14:[address] Samson Blair, DO) Pulmonary cavitary lesion (Acute) Loculated pleural effusion (Acute) Sepsis without acute organ dysfunction (Acute) Acute hyperglycemia (Acute) Sinus tachycardia by electrocardiogram (Acute) Cough productive of purulent sputum (Acute) Chest congestion (Acute) - Physical Exam Vitals/I&O's: Vital Signs Temp Pulse Resp BP Pulse Ox 98.7 F 112 H 18 123/87 H 94 11/03/19 09:02 11/03/19 09:02 11/03/19 09:02 11/03/19 09:02 11/03/19 09:02 Oxygen Delivery Method Room Air Weight: 111.2 kg Body Mass Index (BMI) 33.2 Intake and Output for Last 24 Hours 11/01/19 11/02/19 11/03/19 23:59 23:59 23:59 Intake Total 914 / 914 Balance 914 / 914 General: Alert, Oriented x3, Cooperative, No apparent distress, Well developed, Well nourished HEENT: Atraumatic, PERRLA, EOMI, Normocephalic Oral: Moist Mucosa Neck: Supple, No JVD, Negative Carotid Bruits, Trachea Midline, Thyroid Normal Size and Texture Lungs: Clear to auscultation, No rhonchi, No wheeze, No rales, Diminished - Diminished breath sounds are noted over the left base Cardiovascular: Regular rate, Regular Rhythm, Normal S1, Normal S2, No murmurs, Tachycardic Abdomen: Bowel Sounds Present, Soft, Non Tender, Non-Distended, No hernias noted Extremities: No clubbing, No cyanosis, Capillary Refill Less than 3 Seconds, Edema - Mild pitting edema is noted over the patient's lower legs Skin: No breakdown, Rash Present - Stasis dermatitis changes are noted over patient's lower legs bilaterally Musculoskeletal: No Tenderness to Palpation of Joints or Extremities Neurological: Cranial nerves II-XII grossly intact, Neuro grossly intact, Sensory exam intact to light touch and pain Psych/Mental Status: Normal Affect, Appropriate, Alert and oriented to time, place, person, mood and affect Microbiology Past 72 Hours 11/03/19 06:15 Urine, Clean Catch Streptococcus pneumoniae Antigen (M - Final 11/03/19 06:15 Urine, Clean Catch Legionella Antigen - Final Laboratory Results 11/03/19 05:03: WBC 20.7 H, RBC 5.73, Hgb 16.0, Hct 48.9, MCV 85.3, MCH 27.9, MCHC 32.7, RDW Std Deviation 39.1, RDW Coeff of Corine 12.6, Plt Count 457 H, MPV 10.1, Immature Gran % (Auto) 0.600, Neut % (Auto) 74.2 H, Lymph % (Auto) 13.1 L, [place] % (Auto) 11.8 H, Eos % (Auto) 0.1, Baso % (Auto) 0.2, Absolute Neuts (auto) 15.3 H, Absolute Lymphs (auto) 2.71, Nucleated RBC % 0, Differential Comment SCANNED, Diff Path Review November11/03/19 05:03: PT 14.3, INR 1.2, APTT 34.4 11/03/19 05:03: Sodium 132 L, Potassium 3.9, Chloride 98, Carbon Dioxide 25.0, Anion Gap 9, BUN 13, Creatinine 0.90, Estim Creat Clear Calc 101.79, Est GFR (MDRD) Af Amer 113, Est GFR (MDRD) Non-Af 93, BUN/Creatinine Ratio 14.5, Glucose 183 H, Calcium 9.2, Total Bilirubin 0.70, AST 22, ALT 35, Alkaline Phosphatase 103, Total Protein 8.6 H, Albumin 2.9 L, Globulin 5.7 H, Albumin/Globulin Ratio 0.5 L 11/03/19 05:03: Lactic Acid 1.8 11/03/19 05:03: Troponin I < 0.015 11/03/19 06:15: Urine Color Yellow, Urine Clarity Clear, Urine pH 5.0, Ur Specific [place] 1.015, Urine Protein 30 H, Urine Glucose (UA) Normal, Urine Ketones 50 H, Urine Occult Blood 10 H, Urine Nitrite Negative, Urine Bilirubin Negative, Urine Urobilinogen 1 H, Ur Leukocyte Esterase Negative, Urine RBC 0 SEEN, Urine WBC 0 SEEN, Ur Squamous Epith Cells 0 SEEN, Urine Bacteria 0 SEEN, Urine Mucus 0 SEEN Current Medications Albuterol Sulfate (Ventolin Aerosols) 2.5 mg INHALATION Q2H PRN PRN PRN Reason: DYSPNEA Albuterol/Ipratropium (Duoneb) 3 ml INHALATION Q4HWA.RT KATHARINE Furosemide (Lasix) 40 mg PO DAILY KATHARINE Last Admin: 11/03/19 09:18 Dose: 40 mg Documented by: Heparin Sodium (Porcine) (Heparin Na) 5,000 unit SC Q12 KATHARINE Last Admin: 11/03/19 09:18 Dose: 5,000 unit Documented by: Piperacillin Sod/Tazobactam (Sod 3.375 gm/ Sodium Chloride) 50 mls @ 12.5 mls/hr IV Q8 KATHARINE Vancomycin IV Pharmacy to Dose (1 ea/ Sodium Chloride) 500 mls @ 250 mls/hr IV X1 PRN; Protocol PRN Reason: Rx to Dose Vancomycin HCl 1,750 mg/ (Sodium Chloride) 535 mls @ 250 mls/hr IV X1 ONE Stop: 11/03/19 12:08 Last Admin: 11/03/19 09:18 Dose: 250 mls/hr Documented by: Vancomycin HCl 2,000 mg/ (Sodium Chloride) 540 mls @ 250 mls/hr IV Q12H KATHARINE Ondansetron HCl (Zofran) 4 mg IV Q8H PRN PRN PRN Reason: NAUSEA/VOMITING Potassium Chloride (K-Dur) 20 meq PO DAILYCM KATHARINE Prednisone () 40 mg PO DAILY@0800 KATHARINE Sodium Chloride () 10 - 40 ml IV UD PRN PRN Reason: SALINE FLUSH Assessment/Plan All Active Problems (Last Reviewed 10/04/18 @ 14:[address] Samson Blair, DO) Pulmonary cavitary lesion (Acute) Loculated pleural effusion (Acute) Sepsis without acute organ dysfunction (Acute) Acute hyperglycemia (Acute) Sinus tachycardia by electrocardiogram (Acute) Cough productive of purulent sputum (Acute) Chest congestion (Acute) #1 sepsis secondary to community-acquired pneumonia-patient will be admitted to PCU, I have elected to place the patient on Zosyn and vancomycin for now, he will be seen in consultation by pulmonary medicine #2 cavitary lesion of the right upper lung-etiology unclear, patient denies any contact or history of TB, pulmonary medicine will participate in his work-up #3 stasis dermatitis changes over the lower legs along with dependent edema-patient takes Lasix as needed at home, states that at one time he had severe edema in his legs along with weeping from fluid, the etiology of this is unknown at this time, I have elected to place the patient on oral Lasix once a day along with potassium supplementation at this time #4 community-acquired pneumonia-patient will be given aerosol treatments and antibiotics as mentioned above #5 probable COPD-patient states he does not want a nicotine patch at this time, he stopped smoking 2 days ago. #6 elevated blood sugar-labs will be rechecked tomorrow morning, patient has no history of diabetes #7 left pleural effusion-etiology unclear at this time, work-up per pulmonary medicine Inpatient E&M: 93778 Init Hosp L3
[2019-11-03 11:06] LABS: Hemoglobin A1c 7.3 % (4.2-6.3)
[2019-11-03] MEDS: Ipratropium/Albuterol Sulfate 3 ML AMPUL.NEB INHALATION ×3 (11:32→19:16)
[2019-11-03] MEDS: Morphine 2 MG/ML Syringe IV (22:24)
[2019-11-03] MEDS: guaiFENesin 1,200 MG Tablet 1200 MG PO (22:46)
[2019-11-04] VITALS (14 sets, daily range): BP systolic 132–146; BP diastolic 75–91; PULSE 96–106; RESP 16–22; TEMP 36.8–37.4; O2SAT 90–94
--- NOTE | 2019-11-04 | SPU_PTH ---
PATIENT: SAVANA DAILEY V LOC: [facility] U#:[id number] AGE/SX: 54/M ROOM: [facility] RE11/03/[address]: Dr. Gail Johnson MD : 1965 BED: 1 DIS: 11/06/2019 SPEC #: [id number] RECD: 11/05/19 08:10 STATUS: FILI REQ #: [id number] KRISTIN: 11/04/19 00:[address]: Gail Johnson DEPT: CYTOLOGY RECD BY: Ray Bermeo ENTERED: 11/05/19 08:10 SP TYPE: Sputum Cy OTHR DR: Dr. Samson Blair, DO Dr. Pernell Blair, DO Dr. Gamal Rodriguez, DO Dr. Juan M Baptiste MD Tissues: Sputum Procedures: Pap Stain (control) Special Stain Group II Special Stain Group I AFB Stain (control) Cytospin Fluid HEADER OPERATION: Not noted PRE-OP DIAGNOSIS: Pneumonia TISSUE SUBMITTED: Sputum for cytology DIAGNOSIS CYTOLOGY Sputum for cytology (cytospin and smears): Negative for malignant cells. Acute inflammation. Special stain for acid fast bacilli is negative for organisms; matched control is appropriate. See comment. JOE:carl 11/05/19 COMMENT The specimen predominantly consists of neutrophils. Clinical correlation and appropriate follow up are necessary. CYTOLOGY STUDY Slides are reviewed. CYTOLOGY GROSS Received is <1 ml of thick cloudy fluid labeled with the patient's name and and designated per the requisition as sputum. Submitted for cytology preparation. / carl 11/04/19 TC:2 CPT: 75255, 89833
--- NOTE | 2019-11-04 05:55 | RAD_ITS ---
STUDY: X-RAY CHEST REASON FOR EXAM: Male, 54 years old. Shortness of breath and pneumonia. TECHNIQUE: AP portable upright COMPARISON: 11/03/2019 5:06 AM. FINDINGS: Cavitary lesion lateral aspect right mid lung, smaller nodule cephalad to this, left pleural effusion with adjacent atelectasis, similar to previous. No apparent pneumothorax. Cardiac, mediastinal and hilar contours not significantly changed. No acute osseous abnormality. RAD/Chest 1 View (Portable) IMPRESSION: No significant change. Electronically Signed: Rocky Handy, at 7:41 EDT Tel , Service support ,
[2019-11-04 05:59] LABS: Absolute Lymphocyte Count 2.06 X10^3/uL (0.83-4.51); Absolute Neutrophil Count 15.4 X10^3/uL (2.0-7.7); Basophil# 0.03 X10^3/uL; Basophil% 0.2 % (0-1); Eosinophil# 0.02 X10^3/uL; Eosinophils% 0.1 % (0-5); Hematocrit 44.9 % (40-54); Hemoglobin 14.5 g/dL (13.0-16.5); Lymphocyte # 2.06 X10^3/ul (4.0); Lymphocyte % 10.5 % (19-41); Mean Corp Hgb Conc 32.3 g/dL (32-36); Mean Corpuscular Hgb 27.3 pg (27.0-32.0); Mean Corpuscular Volume 84.4 fL (80-94); Mean Platelet Vol. 10.5 fl (6.2-12.0); Monocyte# 2.03 X10^3/uL; Monocyte% 10.3 % (0-10); NRBC Flagged by Analyzer 0 % (0-5); Neutrophil % 78.4 % (47-70); POSITIVE DIFFERENTIAL YES; Platelet Count 397 K/mm3 (150-450); RBC Distribution Width CV 12.7 % (11.6-14.6); RBC Distribution Width SD 38.7 fl (35.1-43.9); Red Blood Count 5.32 M/mm3 (4.6-6.2); White Blood Count 19.6 K/mm3 (4.4-11.0)
[2019-11-04 06:10] LABS: Anion Gap 6 (5-15); BUN 14 mg/dL (7-18); BUN/Creat Ratio 17.2 RATIO (10-20); Calcium,Total 8.8 mg/dL (8.5-10.1); Chloride 99 mmol/L (98-107); Creatinine, Serum 0.82 mg/dL (0.70-1.30); EST Glomerular Filtration Rate 104 mL/min (>60); Est Glom Filt Rate - Afr Amer 126 mL/min (>60); Estimated Creatinine Clearance 111.72 ml/min; Glucose 149 mg/dL (74-106); Potassium 3.9 mmol/L (3.5-5.1); Sodium Level 132 mmol/L (136-145)
[2019-11-04 06:49] LABS: Differential Indicated SCAN CRITERIA MET
[2019-11-04] MEDS: Ipratropium/Albuterol Sulfate 3 ML AMPUL.NEB INHALATION ×4 (06:54→20:04)
[2019-11-04] MEDS: guaiFENesin 1,200 MG Tablet 1200 MG PO ×2 (10:16→21:14)
[2019-11-04] MEDS: Heparin Injection (Vial) 5,000 UNIT/ML VIAL 5000 UNIT SC ×2 (10:16→21:14)
[2019-11-04] MEDS: oxyCODONE 5 MG Tablet PO (10:16)
[2019-11-04] MEDS: predniSONE 20 MG Tablet 40 MG PO (10:16)
--- NOTE | 2019-11-04 10:50 | NURSING ---
Patient's phones for updated. Same given. Would like for hospitalist to call her. RN obtained phone number to provide to hospitalist.
--- NOTE | 2019-11-04 10:52 | CASEMGMT ---
Assessment- SW called patient's room to complete assessment. Patient is in contact precautions and SW is not going to those rooms at this time. Living situation- Patient lives with his in a 2 story home. PCP: Dr Blair Specialists: None Pharmacy: [facility] [place] DME: None ADL's/IADL's: Patient is independent in all ADL's and IADL's. He normally works. He drives, manages his own medications, bathes independently etc. Past SNF/rehab: None Past HH: None LW: No POA: No Plan: SW spoke with patient for assessment. He has no concerns with going home at discharge. SW asked patient about self pay status. He private pays to see Dr Blair. He declined any resources for self pay such as [employer], [facility] Weiss etc. Noreen SANDERS MSW
[2019-11-04 11:10] LABS: Pathologist Review Reviewed
[2019-11-04 11:13] LABS: Pathologist Review Reviewed
--- NOTE | 2019-11-04 11:22 | PN_ITS ---
Patient Problems: Active and Suspected Problems (Last Reviewed 10/04/18 @ 14:[address] Samson Blair, DO) Pulmonary cavitary lesion (Acute) Loculated pleural effusion (Acute) Sepsis without acute organ dysfunction (Acute) Acute hyperglycemia (Acute) Sinus tachycardia by electrocardiogram (Acute) Cough productive of purulent sputum (Acute) Chest congestion (Acute) Reason for Visit: Follow-up on sepsis secondary to community-acquired pneumonia, cavitary lesions Subjective: Patient was seen and examined. Not on oxygen. He denied any fever or chills. He has been coughing up sputum, brownish. No hemoptysis. Complains of bilateral rib pain probably from coughing. Objective: Physical exam: General: Alert, Oriented x3, Cooperative, in mild distress, Well developed, Well nourished HEENT: Atraumatic, PERRLA, EOMI, Normocephalic Oral: Moist Mucosa Neck: Supple, No JVD, Negative Carotid Bruits, Trachea Midline, Thyroid Normal Size and Texture Lungs: Diminished - Diminished breath sounds are noted over the left base Cardiovascular: Regular rate, Regular Rhythm, Normal S1, Normal S2, No murmurs, Tachycardic Abdomen: Bowel Sounds Present, Soft, Non Tender, Non-Distended, No hernias noted Extremities: Edema - Mild pitting edema is noted over the patient's lower legs Skin: Rash Present - Stasis dermatitis changes are noted over patient's lower legs bilaterally Musculoskeletal: No Tenderness to Palpation of Joints or Extremities Neurological: Cranial nerves II-XII grossly intact, Neuro grossly intact, Sensory exam intact to light touch and pain Psych/Mental Status: Normal Affect, Appropriate, Alert and oriented to time, place, person, mood and affect Vitals/I&O's: Vital Signs Temp Pulse Resp BP Pulse Ox 99.1 F 105 H 22 H 135/91 H 93 11/04/19 09:40 11/04/19 09:40 11/04/19 09:40 11/04/19 09:40 11/04/19 09:40 Oxygen Delivery Method Room Air Weight: 111.2 kg Body Mass Index (BMI) 33.2 Intake and Output for Last 24 Hours 11/02/19 11/03/19 11/04/19 23:59 23:59 23:59 Intake Total 3266.5 / 3266.5 50 / 50 Balance 3266.5 / 3266.5 50 / 50 Microbiology Past 72 Hours 11/03/19 06:15 Sputum, Expectorated/Coughed Gram Stain - Final 11/03/19 06:15 Sputum, Expectorated/Coughed Respiratory Culture - Preliminary 11/03/19 06:15 Urine, Clean Catch Urine Culture - Final Culture exhibits no growth. 11/03/19 07:35 Mucosa - Nasopharyngeal Respiratory Panel (PCR) - Final 11/03/19 06:15 Urine, Clean Catch Streptococcus pneumoniae Antigen (M - Final 11/03/19 06:15 Urine, Clean Catch Legionella Antigen - Final Laboratory Results 11/03/19 05:03: Diff Path Review Reviewed 11/04/19 05:14: WBC 19.6 H, RBC 5.32, Hgb 14.5, Hct 44.9, MCV 84.4, MCH 27.3, MCHC 32.3, RDW Std Deviation 38.7, RDW Coeff of Corine 12.7, Plt Count 397, MPV 10.5, Immature Gran % (Auto) 0.500, Neut % (Auto) 78.4 H, Lymph % (Auto) 10.5 L, [place] % (Auto) 10.3 H, Eos % (Auto) 0.1, Baso % (Auto) 0.2, Absolute Neuts (auto) 15.4 H, Absolute Lymphs (auto) 2.06, Nucleated RBC % 0, Differential Comment COMMENT, Diff Path Review Reviewed 11/04/19 05:14: Sodium 132 L, Potassium 3.9, Chloride 99, Carbon Dioxide 27.0, Anion Gap 6, BUN 14, Creatinine 0.82, Estim Creat Clear Calc 111.72, Est GFR (MDRD) Af Amer 126, Est GFR (MDRD) Non-Af 104, BUN/Creatinine Ratio 17.2, Glucose 149 H, Calcium 8.8 Current Medications Acetaminophen (Tylenol) 650 mg PO Q4H PRN PRN PRN Reason: pain 1-10, fever Albuterol Sulfate (Ventolin Aerosols) 2.5 mg INHALATION Q2H PRN PRN PRN Reason: DYSPNEA Albuterol/Ipratropium (Duoneb) 3 ml INHALATION Q4HWA.RT [facility] Last Admin: 11/04/19 06:54 Dose: 3 ml Documented by: Furosemide (Lasix) 40 mg PO DAILY [facility] Last Admin: 11/04/19 10:16 Dose: Not Given Documented by: Guaifenesin (Mucinex) 1,200 mg PO BID [facility] Last Admin: 11/04/19 10:16 Dose: 1,200 mg Documented by: Heparin Sodium (Porcine) (Heparin Na) 5,000 unit SC Q12 [facility] Last Admin: 11/04/19 10:16 Dose: 5,000 unit Documented by: Piperacillin Sod/Tazobactam (Sod 3.375 gm/ Sodium Chloride) 50 mls @ 12.5 mls/hr IV Q8 [facility] Last Admin: 11/04/19 05:26 Dose: 12.5 mls/hr Documented by: Vancomycin IV Pharmacy to Dose (1 ea/ Sodium Chloride) 500 mls @ 250 mls/hr IV X1 PRN; Protocol PRN Reason: Rx to Dose Vancomycin HCl 2,000 mg/ (Sodium Chloride) 540 mls @ 250 mls/hr IV Q12H [facility] Last Infusion: 11/03/19 22:41 Dose: Infused Documented by: Ketorolac Tromethamine (Toradol (Bkc)) 30 mg IV Q8 [facility] Stop: 11/05/19 14:01 Morphine Sulfate () 2 mg IV Q4H PRN PRN PRN Reason: severe pain 6-10/10 Last Admin: 11/03/19 22:24 Dose: 2 mg Documented by: Ondansetron HCl (Zofran) 4 mg IV Q8H PRN PRN PRN Reason: NAUSEA/VOMITING Oxycodone HCl (Oxyir) 5 mg PO Q4H PRN PRN PRN Reason: Pain Score 4-10/10 Last Admin: 11/04/19 10:16 Dose: 5 mg Documented by: Potassium Chloride (K-Dur) 20 meq PO DAILYCM [facility] Last Admin: 11/04/19 10:15 Dose: 20 meq Documented by: Prednisone () 40 mg PO DAILY@0800 [facility] Last Admin: 11/04/19 10:16 Dose: 40 mg Documented by: Sodium Chloride () 10 - 40 ml IV UD PRN PRN Reason: SALINE FLUSH STROKE Vital Signs/Narrative: Vital Signs Temp Pulse Resp BP Pulse Ox 11/04/19 09:40 99.1 F 105 H 22 H 135/91 H 93 Medical Necessity - Tobacco Use Smoking Status: Current every day smoker Tobacco Use: Cigarettes Assessment/Plan All Active Problems (Last Reviewed 10/04/18 @ 14:[address] Samson Blair, DO) Pulmonary cavitary lesion (Acute) Loculated pleural effusion (Acute) Sepsis without acute organ dysfunction (Acute) Acute hyperglycemia (Acute) Sinus tachycardia by electrocardiogram (Acute) Cough productive of purulent sputum (Acute) Chest congestion (Acute) 1. Sepsis secondary to community-acquired pneumonia, improving, WBC down from 20.7 to 19.6, no fevers seen Blood cultures pending, sputum cultures, urine Legionella and Streptococcus antigen, respiratory panel are negative Continue on IV vancomycin and Zosyn ID consulted 2. Pneumonia/cavitary lesions/pleural effusion low suspicion for TB, Pulmonology/ID consulted Continue on IV antibiotics as above Will request ultrasound guided thoracocentesis with labs 3. Type 2 DM, HbA1c 7.3, previously diet-controlled Will start on ISS, metformin from tomorrow 4. Stasis dermatitis/dependent edema, on daily lasix with potassium supplementation 5. Nicotine dependence, refused replacement 6. DVT PPx- Heparin SC Inpatient E&M: 20244 Subs Hosp L2
--- NOTE | 2019-11-04 11:40 | US_ITS ---
STUDY: SUPERFICIAL ULTRASOUND - LEFT PLEURAL SPACE. REASON FOR EXAM: Male, 54 years old. LT PLEURAL EFFUSION TECHNIQUE: A superficial ultrasound was performed with real-time and static kovacs-scale imaging. COMPARISON: None. FINDINGS: Minimal amount of free fluid in the left pleural space. Not enough for safe thoracentesis. US/Chest IMPRESSION: Minimal amount of left pleural fluid. Underlying left basilar atelectasis and/or infiltrate. Electronically Signed: Pravin Nielsen, at 15:36 EDT , Service support ,
[2019-11-04 12:28] LABS: LDH 190 U/L (87-241)
[2019-11-04] MEDS: Acetaminophen 325 MG Tablet 650 MG PO (12:29)
--- NOTE | 2019-11-04 13:01 | PN_ITS ---
Patient Problems: Active and Suspected Problems (Last Reviewed 10/04/18 @ 14:[address] Samson lBair, DO) Pulmonary cavitary lesion (Acute) Loculated pleural effusion (Acute) Sepsis without acute organ dysfunction (Acute) Acute hyperglycemia (Acute) Sinus tachycardia by electrocardiogram (Acute) Cough productive of purulent sputum (Acute) Chest congestion (Acute) Subjective: Patient did okay overnight. Patient is reporting subjective improvement in dyspnea compared to yesterday. Still having significant cough with purulent sputum. Patient states chest pain is improving. Intermittent mild hemoptysis reported. - Physical Exam Vitals/I&O's: Vital Signs Temp Pulse Resp BP Pulse Ox 37.4 C H 106 H 20 H 134/75 H 93 11/04/19 12:31 11/04/19 12:31 11/04/19 12:31 11/04/19 12:31 11/04/19 12:31 Oxygen Delivery Method Room Air Weight: 111.2 kg Body Mass Index (BMI) 33.2 Intake and Output for Last 24 Hours 11/02/19 11/03/19 11/04/19 23:59 23:59 23:59 Intake Total 3266.5 / 3266.5 100 / 100 Balance 3266.5 / 3266.5 100 / 100 General: Alert, Oriented x3, Cooperative, No apparent distress, - - Obese. Appears older than stated age. HEENT: Atraumatic, PERRLA, EOMI, Normocephalic, - - Glasses in place. Oral: Moist Mucosa, No Gingival or Mucosal Lesions/ Ulcerations Neck: Supple, No JVD, No Nodes, Trachea Midline Lungs: No wheeze, No rales, Diminished, Rhonchi - Left greater than right, - - Symmetric expansion. Slight dullness to percussion at the left mid axillary line Cardiovascular: Regular rate, Regular Rhythm, Normal S1, Normal S2, No murmurs, No rub noted, No Gallop Abdomen: Bowel Sounds Present, Soft, Non Tender, Non-Distended, Obese Extremities: No clubbing, No cyanosis, No edema Skin: No rashes, No breakdown Musculoskeletal: No Tenderness to Palpation of Joints or Extremities Lymphatic: No Cervical, Supraclavicular, or Inguinal Adenopathy Neurological: Cranial nerves II-XII grossly intact, Neuro grossly intact, Motor Exam 5/5 strength throughout Psych/Mental Status: Alert and oriented to time, place, person, mood and affect Microbiology Past 72 Hours 11/03/19 06:15 Sputum, Expectorated/Coughed Gram Stain - Final 11/03/19 06:15 Sputum, Expectorated/Coughed Respiratory Culture - Preliminary 11/03/19 06:15 Urine, Clean Catch Urine Culture - Final Culture exhibits no growth. 11/03/19 07:35 Mucosa - Nasopharyngeal Respiratory Panel (PCR) - Final 11/03/19 06:15 Urine, Clean Catch Streptococcus pneumoniae Antigen (M - Final 11/03/19 06:15 Urine, Clean Catch Legionella Antigen - Final Laboratory Results 11/03/19 05:03: Diff Path Review Reviewed 11/04/19 05:14: WBC 19.6 H, RBC 5.32, Hgb 14.5, Hct 44.9, MCV 84.4, MCH 27.3, MCHC 32.3, RDW Std Deviation 38.7, RDW Coeff of Corine 12.7, Plt Count 397, MPV 10.5, Immature Gran % (Auto) 0.500, Neut % (Auto) 78.4 H, Lymph % (Auto) 10.5 L, [place] % (Auto) 10.3 H, Eos % (Auto) 0.1, Baso % (Auto) 0.2, Absolute Neuts (auto) 15.4 H, Absolute Lymphs (auto) 2.06, Nucleated RBC % 0, Differential Comment COMMENT, Diff Path Review Reviewed 11/04/19 05:14: Sodium 132 L, Potassium 3.9, Chloride 99, Carbon Dioxide 27.0, Anion Gap 6, BUN 14, Creatinine 0.82, Estim Creat Clear Calc 111.72, Est GFR (MDRD) Af Amer 126, Est GFR (MDRD) Non-Af 104, BUN/Creatinine Ratio 17.2, Glucose 149 H, Calcium 8.8 11/04/19 05:14: Lactate Dehydrogenase 190 Current Medications Acetaminophen (Tylenol) 650 mg PO Q4H PRN PRN PRN Reason: pain 1-10, fever Last Admin: 11/04/19 12:29 Dose: 650 mg Documented by: Albuterol Sulfate (Ventolin Aerosols) 2.5 mg INHALATION Q2H PRN PRN PRN Reason: DYSPNEA Albuterol/Ipratropium (Duoneb) 3 ml INHALATION Q4HWA.RT [facility] Last Admin: 11/04/19 11:55 Dose: 3 ml Documented by: Dextrose (D50w Syringe) 0 gm IV X1 PRN; Protocol PRN Reason: Hypoglycemia Furosemide (Lasix) 40 mg PO DAILY [facility] Last Admin: 11/04/19 10:16 Dose: Not Given Documented by: Glucagon () 1 mg IM .X1 PRN PRN Reason: Hypoglycemia Guaifenesin (Mucinex) 1,200 mg PO BID [facility] Last Admin: 11/04/19 10:16 Dose: 1,200 mg Documented by: Heparin Sodium (Porcine) (Heparin Na) 5,000 unit SC Q12 [facility] Last Admin: 11/04/19 10:16 Dose: 5,000 unit Documented by: Piperacillin Sod/Tazobactam (Sod 3.375 gm/ Sodium Chloride) 50 mls @ 12.5 mls/hr IV Q8 [facility] Last Infusion: 11/04/19 09:30 Dose: Infused Documented by: Vancomycin IV Pharmacy to Dose (1 ea/ Sodium Chloride) 500 mls @ 250 mls/hr IV X1 PRN; Protocol PRN Reason: Rx to Dose Vancomycin HCl 2,000 mg/ (Sodium Chloride) 540 mls @ 250 mls/hr IV Q12H [facility] Last Admin: 11/04/19 12:19 Dose: 200 mls/hr Documented by: Insulin Human Lispro (Humalog Kwikpen (Bkc)) 0 unit SC ACHS [facility]; Protocol Ketorolac Tromethamine (Toradol (Bkc)) 30 mg IV Q8 [facility] Stop: 11/05/19 14:01 Metformin HCl (Glucophage Xr) 500 mg PO DAILY@1700 [facility] Morphine Sulfate () 2 mg IV Q4H PRN PRN PRN Reason: severe pain 6-10/10 Last Admin: 11/03/19 22:24 Dose: 2 mg Documented by: Ondansetron HCl (Zofran) 4 mg IV Q8H PRN PRN PRN Reason: NAUSEA/VOMITING Oxycodone HCl (Oxyir) 5 mg PO Q4H PRN PRN PRN Reason: Pain Score 4-10/10 Last Admin: 11/04/19 10:16 Dose: 5 mg Documented by: Potassium Chloride (K-Dur) [facility] Last Admin: 11/04/19 10:15 Dose: 20 meq Documented by: Sodium Chloride () 10 - 40 ml IV UD PRN PRN Reason: SALINE FLUSH Clinical Impression(s) from Imaging Studies Chest X-Ray 11/04/19 05:55 IMPRESSION: No significant change. Electronically Signed: Rocky Handy, at 7:41 EDT Tel , Service support , Medical Necessity - Tobacco Use Smoking Status: Current every day smoker Tobacco Use: Cigarettes Assessment/Plan All Active Problems (Last Reviewed 10/04/18 @ 14:[address] Samson Blair, DO) Pulmonary cavitary lesion (Acute) Loculated pleural effusion (Acute) Sepsis without acute organ dysfunction (Acute) Acute hyperglycemia (Acute) Sinus tachycardia by electrocardiogram (Acute) Cough productive of purulent sputum (Acute) Chest congestion (Acute) RECOMMENDATIONS: 1. Continue empiric antimicrobials for now pending ID consult. 2. Consider ultrasound-guided thoracentesis of left pleural space, if feasible. 3. Await culture data 4. Consider echocardiogram for evaluation of endocarditis if blood cultures positive 5. Encourage incentive spirometer use and mobilize patient as tolerated. IMPRESSIONS: 1. Sepsis secondary to community-acquired pneumonia The patient presented to the hospital with shortness of breath and productive cough. Given the findings noted on CT chest, the patient will be started on broad-spectrum antimicrobials, pending infectious work-up. He remains hemodynamically stable, nonetheless. My review of the CT scan shows findings more consistent with a pulmonary abscess, but malignancy from adenocar cinoma cannot be excluded given patient's smoking history. Patient does have a significant leukocytosis, but no fever was noted overnight. Patient would likely benefit from evaluation of possible empyema. Would proceed with thoracentesis if IR can find an appropriate fluid pocket. 2. Cavitary lung lesions The lesions noted on CT chest could certainly be infectious or malignant in nature. The patient has no TB exposure history. For now, the patient will be treated with broad-spectrum antimicrobials. Thick-walled fluid filled cyst is suggestive of an abscess. Repeat chest imaging will undoubtedly need to be completed in 6 to 8 weeks. If these lesions do not begin to resolve with treatment, would at that time consider malignant work-up with CT-guided biopsy. Cannot exclude pneumothorax complications as patient does have emphysematous changes in the area of the potential abscess. 3. History of tobacco dependency with questionable underlying obstructive lung disease Given the patient's extensive tobacco abuse history, I cannot discount the possibility that he is currently experiencing an exacerbation of possible obst ructive lung disease. We will hold on prednisone given patient's diagnosis of diabetes and lack of wheezing on exam. Smoking cessation counseling was provided to the patient. He would likely benefit from outpatient pulmonary follow-up and baseline PFTs. Inpatient E&M: [id number] [facility] Hosp L3
--- NOTE | 2019-11-04 14:13 | NURSING ---
Called and informed radiology that patient had SQ Heparin this am.
--- NOTE | 2019-11-04 14:56 | PCM.HP.ID ---
Problem List (1) Pulmonary cavitary lesion Status: Acute Reason for Consult: cavitary lung abscess Consulted by: Dr. Johnson History of Present Illness: The patient is a 54 year old M with long smoking history (40+ years at 2ppd), presented with about a week of cough, not feeling well, no fever or chills. Had progressive dyspnea and brown/bloody sputum over past few days. Has intentionally lost about 50lbs over the past year. No night sweats. No prior PPD. No known exposure to TB. No travel outside the country. No IVDU. No tooth problems or recent dental work. Came to ED, Cxr and CT done which showed cavitary pneumonia. Admitted on vanc/zosyn, feeling better, producing a lot of sputum. Full ROS performed and neg except as noted above. - Medical History Past Medical History (Chronic Problems): Chronic Problems (Last Reviewed 10/04/18 @ 14:[address] Samson Blair, DO) Erectile dysfunction (Chronic) Tobacco abuse (Chronic) Allergies/Adverse Reactions: Allergies No Known Allergies Allergy (Verified 11/03/19 05:48) Home Medications: Ambulatory Orders Medication Instructions Recorded furosemide 40 mg tablet 40 mg PO DAILY #30 tab 07/04/18 - Social History SMOKING STATUS:: Former smoker - recently quit Vital Signs Temp Pulse Resp BP Pulse Ox 99.3 F H 106 H 20 H 134/75 H 93 11/04/19 12:31 11/04/19 12:31 11/04/19 12:31 11/04/19 12:31 11/04/19 12:31 Oxygen Delivery Method Room Air Weight: 111.2 kg Body Mass Index (BMI) 33.2 Microbiology Past 72 Hours 11/03/19 06:15 Gram Stain - Final Sputum, Expectorated/Coughed Respiratory Culture - Preliminary 11/03/19 06:15 Urine Culture - Final Urine, Clean Catch Culture exhibits no growth. 11/03/19 07:35 Respiratory Panel (PCR) - Final Mucosa - Nasopharyngeal 11/03/19 06:15 Streptococcus pneumoniae Antigen (M - Final Urine, Clean Catch 11/03/19 06:15 Legionella Antigen - Final Urine, Clean Catch Laboratory Tests Past 24 Hrs 11/03/19 11/04/19 11/04/19 05:03 05:14 05:14 WBC 19.6 H RBC 5.32 Hgb 14.5 Hct 44.9 MCV 84.4 MCH 27.3 MCHC 32.3 RDW Std Deviation 38.7 RDW Coeff of Corine 12.7 Plt Count 397 MPV 10.5 Immature Gran % (Auto) 0.500 Neut % (Auto) 78.4 H Lymph % (Auto) 10.5 L [place] % (Auto) 10.3 H Eos % (Auto) 0.1 Baso % (Auto) 0.2 Absolute Neuts (auto) 15.4 H Absolute Lymphs (auto) 2.06 Nucleated RBC % 0 Differential Comment COMMENT Diff Path Review Reviewed Reviewed Sodium 132 L Potassium 3.9 Chloride 99 Carbon Dioxide 27.0 Anion Gap 6 BUN 14 Creatinine 0.82 Estim Creat Clear Calc 111.72 Est GFR (MDRD) Af Amer 126 Est GFR (MDRD) Non-Af 104 BUN/Creatinine Ratio 17.2 Glucose 149 H Calcium 8.8 Lactate Dehydrogenase 11/04/19 05:14 WBC RBC Hgb Hct MCV MCH MCHC RDW Std Deviation RDW Coeff of Corine Plt Count MPV Immature Gran % (Auto) Neut % (Auto) Lymph % (Auto) [place] % (Auto) Eos % (Auto) Baso % (Auto) Absolute Neuts (auto) Absolute Lymphs (auto) Nucleated RBC % Differential Comment Diff Path Review Sodium Potassium Chloride Carbon Dioxide Anion Gap BUN Creatinine Estim Creat Clear Calc Est GFR (MDRD) Af Amer Est GFR (MDRD) Non-Af BUN/Creatinine Ratio Glucose Calcium Lactate Dehydrogenase 190 - Other Studies Radiology: [] reviewed CT images, R sided cavity/abscess Other Studies: [] Route of nutrition/ use of supplements: [] Nutritional Intake: [] IV Site: [] [place] Catheter: [] - Physical Exam General: Alert, Oriented x3, Cooperative, No apparent distress HEENT: Atraumatic, PERRLA, EOMI Neck: Supple, No Nodes Lungs: Rhonchi Cardiovascular: Regular rate, Regular Rhythm Abdomen: Soft, Non Tender, Non-Distended Extremities: No edema Skin: No rashes IV Site: Peripheral, without redness Musculoskeletal: No Tenderness to Palpation of Joints or Extremities Neurological: Cranial nerves II-XII grossly intact - Assessment/Plan Antibiotics: [] Assessment/Plan: [] Active and Suspected Problems (Last Reviewed 10/04/18 @ 14:[address] Samson Blair, DO) Pulmonary cavitary lesion (Acute) Loculated pleural effusion (Acute) Sepsis without acute organ dysfunction (Acute) Acute hyperglycemia (Acute) Sinus tachycardia by electrocardiogram (Acute) Cough productive of purulent sputum (Acute) Chest congestion (Acute) Cavitary lesion - No clear inciting event or exposure. Will rule out TB with sptum AFB x3; neg airflow while smears are pending. Thoracentesis is planned, will order bacterial/fungal/AFB culture of the sample. Cont vanc/zosyn for now. Will follow, thank you, d/w nursing and Dr. Tyler.
[2019-11-04 15:37] LABS: Acid Fast Stain SEE PATHOLOGY REPORT; Cytology, Body Fluid / CSF SEE PATHOLOGY REPORT
[2019-11-04] MEDS: Insulin Lispro 100 UNIT/ML INSULN.PEN SC ×2 (18:18→21:22)
[2019-11-04 18:31] LABS: Bedside Glucose 225 mg/dL (70-110)
[2019-11-04 20:03] LABS: Vancomycin, Trough Level 5.5 ug/mL (5.0-15.0)
--- NOTE | 2019-11-04 20:26 | PCM.RX.CS ---
Consult Pharmacy has been consulted to manage selected antiobiotic: Vancomycin Type of Consult: Follow-up Suspected Infection: Pneumonia Prior Doses of Antibiotics Received/Current Regimen: VANCOMYCIN 2000MG IV Q12HRS Labs: Sodium 132 mmol/L (136-145) L 11/04/19 05:14 Potassium 3.9 mmol/L (3.5-5.1) 11/04/19 05:14 Chloride 99 mmol/L (98-107) 11/04/19 05:14 Carbon Dioxide 27.0 mmol/L (21.0-32.0) 11/04/19 05:14 Anion Gap 6 (5-15) 11/04/19 05:14 BUN 14 mg/dL (7-18) 11/04/19 05:14 Creatinine 0.82 mg/dL (0.70-1.30) 11/04/19 05:14 Est GFR (MDRD) Af Amer 126 mL/min (>60) 11/04/19 05:14 Est GFR (MDRD) Non-Af 104 mL/min (>60) 11/04/19 05:14 BUN/Creatinine Ratio 17.2 RATIO (10-20) 11/04/19 05:14 Glucose 149 mg/dL (74-106) H 11/04/19 05:14 Vancomycin Trough 5.5 ug/mL (5.0-15.0) 11/04/19 19:15 Microbiology: Microbiology 11/03/19 06:15 Sputum, Expectorated/Coughed Gram Stain - Final 11/03/19 06:15 Sputum, Expectorated/Coughed Respiratory Culture - Preliminary 11/03/19 06:15 Urine, Clean Catch Urine Culture - Final Culture exhibits no growth. 11/03/19 07:35 Mucosa - Nasopharyngeal Respiratory Panel (PCR) - Final 11/03/19 06:15 Urine, Clean Catch Streptococcus pneumoniae Antigen (M - Final 11/03/19 06:15 Urine, Clean Catch Legionella Antigen - Final Goal Trough: 15-20 mcg/mL Pharmacy Plan for Drug Dosing: The patient had a trough drawn this evening which resulted in a value of 5.5 (goal 15-20). Earlier today, nursing contacted pharmacy regarding a possible IV incompatibility issue, causing the patient to only get ~100ml of the 540mL bag per nursing. Since exact amount of vancomycin infused was unknown, recommended at that time to take down the vancomycin, and the level drawn this evening would be considered a random level to ensure the patient is not toxic. Since level was .5, spoke with nursing staff to go ahead and continue to administer the scheduled dosing, and rec to administer on separate lines, as it was confirmed the patient has 2 IV access lines. Will get another trough after a few more 2000mg IV Q12hr doses are administered. PLAN/RECOMMENDATIONS 1. Continue vancomycin 2000mg IV Q12hrs as initial trough ordered does not reflect adequate trough d/t issues stated above 2. Trough ordered for 11/06/19 @0730 to assess dosing at that time 3. Pharmacy Service will continue to monitor and adjust dosing as required.
--- NOTE | 2019-11-04 22:42 | NURSING ---
Verbal report given to JACE Bach. She will resume care of patient at this time.
[2019-11-04 23:56] LABS: Bedside Glucose 217 mg/dL (70-110)
[2019-11-05] VITALS (14 sets, daily range): BP systolic 123–152; BP diastolic 67–94; PULSE 90–112; RESP 15–20; TEMP 36.6–36.8; O2SAT 92–97
[2019-11-05] MEDS: Ketorolac 30 MG/ML Syringe IV ×2 (06:38→14:40)
[2019-11-05 06:40] LABS: Absolute Lymphocyte Count 2.21 X10^3/uL (0.83-4.51); Absolute Neutrophil Count 14.7 X10^3/uL (2.0-7.7); Basophil# 0.02 X10^3/uL; Basophil% 0.1 % (0-1); Eosinophil# 0.04 X10^3/uL; Eosinophils% 0.2 % (0-5); Hematocrit 41.6 % (40-54); Hemoglobin 13.5 g/dL (13.0-16.5); Lymphocyte # 2.21 X10^3/ul (4.0); Lymphocyte % 11.9 % (19-41); Mean Corp Hgb Conc 32.5 g/dL (32-36); Mean Corpuscular Hgb 27.2 pg (27.0-32.0); Mean Corpuscular Volume 83.9 fL (80-94); Mean Platelet Vol. 9.8 fl (6.2-12.0); Monocyte# 1.54 X10^3/uL; Monocyte% 8.3 % (0-10); NRBC Flagged by Analyzer 0 % (0-5); POSITIVE DIFFERENTIAL YES; Platelet Count 430 K/mm3 (150-450); RBC Distribution Width CV 12.8 % (11.6-14.6); Red Blood Count 4.96 M/mm3 (4.6-6.2); White Blood Count 18.6 K/mm3 (4.4-11.0)
[2019-11-05 06:43] LABS: Differential Indicated SCAN CRITERIA MET
[2019-11-05] MEDS: Ipratropium/Albuterol Sulfate 3 ML AMPUL.NEB INHALATION ×4 (06:44→19:20)
[2019-11-05 06:50] LABS: Bedside Glucose 149 mg/dL (70-110)
[2019-11-05 06:59] LABS: Anion Gap 5 (5-15); BUN 15 mg/dL (7-18); BUN/Creat Ratio 21.2 RATIO (10-20); Calcium,Total 8.6 mg/dL (8.5-10.1); Chloride 106 mmol/L (98-107); Creatinine, Serum 0.71 mg/dL (0.70-1.30); EST Glomerular Filtration Rate 123 mL/min (>60); Est Glom Filt Rate - Afr Amer 149 mL/min (>60); Estimated Creatinine Clearance 129.03 ml/min; Glucose 155 mg/dL (74-106); Potassium 3.9 mmol/L (3.5-5.1); Sodium Level 137 mmol/L (136-145)
[2019-11-05 07:03] LABS: Differential Comment SCANNED
[2019-11-05 07:05] LABS: Reactive Lymphocyte RARE
--- NOTE | 2019-11-05 07:30 | PN_ITS ---
Patient Problems: Active and Suspected Problems (Last Reviewed 10/04/18 @ 14:[address] Samson Blair, DO) Pulmonary cavitary lesion (Acute) Loculated pleural effusion (Acute) Sepsis without acute organ dysfunction (Acute) Acute hyperglycemia (Acute) Sinus tachycardia by electrocardiogram (Acute) Cough productive of purulent sputum (Acute) Chest congestion (Acute) Reason for Visit: Follow-up on sepsis secondary to community-acquired pneumonia, cavitary lesions Subjective: Patient was seen and examined. No new complains. Denies fever or chills. Objective: Physical exam: General: Alert, Oriented x3, Cooperative, in mild distress, Well developed, Well nourished HEENT: Atraumatic, PERRLA, EOMI, Normocephalic Oral: Moist Mucosa Neck: Supple, No JVD, Negative Carotid Bruits, Trachea Midline, Thyroid Normal Size and Texture Lungs: Diminished - Diminished breath sounds are noted over the left base Cardiovascular: Regular rate, Regular Rhythm, Normal S1, Normal S2, No murmurs, Tachycardic Abdomen: Bowel Sounds Present, Soft, Non Tender, Non-Distended, No hernias noted Extremities: Edema - Mild pitting edema is noted over the patient's lower legs Skin: Rash Present - Stasis dermatitis changes are noted over patient's lower legs bilaterally Musculoskeletal: No Tenderness to Palpation of Joints or Extremities Neurological: Cranial nerves II-XII grossly intact, Neuro grossly intact, Sensory exam intact to light touch and pain Psych/Mental Status: Normal Affect, Appropriate, Alert and oriented to time, place, person, mood and affect Vitals/I&O's: Vital Signs Temp Pulse Resp BP Pulse Ox 98.1 F 99 20 H 152/94 H 92 11/05/19 01:30 11/05/19 06:44 11/05/19 06:44 11/05/19 01:30 11/05/19 06:44 Oxygen Delivery Method Room Air Weight: 111.2 kg Body Mass Index (BMI) 33.2 Intake and Output for Last 24 Hours 11/03/19 11/04/19 11/05/19 23:59 23:59 23:59 Intake Total 3266.5 / 3266.5 2200 / 2200 50 / 50 Balance 3266.5 / 3266.5 2200 / 2200 50 / 50 Microbiology Past 72 Hours 11/03/19 06:15 Sputum, Expectorated/Coughed Gram Stain - Final 11/03/19 06:15 Sputum, Expectorated/Coughed Respiratory Culture - Preliminary 11/03/19 06:15 Urine, Clean Catch Urine Culture - Final Culture exhibits no growth. 11/03/19 07:35 Mucosa - Nasopharyngeal Respiratory Panel (PCR) - Final 11/03/19 06:15 Urine, Clean Catch Streptococcus pneumoniae Antigen (M - Final 11/03/19 06:15 Urine, Clean Catch Legionella Antigen - Final Laboratory Results 11/03/19 05:03: Diff Path Review Reviewed 11/04/19 05:14: Diff Path Review Reviewed 11/04/19 05:14: Lactate Dehydrogenase 190 11/04/19 15:15: Acid Fast Stain Pending, Miscellaneous Cytology Pending 11/04/19 18:14: POC Glucose 225 H 11/04/19 19:15: Vancomycin Trough 5.5 11/04/19 21:20: POC Glucose 217 H 11/05/19 06:25: WBC 18.6 H, RBC 4.96, Hgb 13.5, Hct 41.6, MCV 83.9, MCH 27.2, MCHC 32.5, RDW Std Deviation 39.0, RDW Coeff of Corine 12.8, Plt Count 430, MPV 9.8, Immature Gran % (Auto) 0.500, Neut % (Auto) 79.0 H, Lymph % (Auto) 11.9 L, [place] % (Auto) 8.3, Eos % (Auto) 0.2, Baso % (Auto) 0.1, Absolute Neuts (auto) 14.7 H, Absolute Lymphs (auto) 2.21, Nucleated RBC % 0, Differential Comment SCANNED, Diff Path Review May foll, Reactive Lymphocytes RARE 11/05/19 06:25: Sodium 137, Potassium 3.9, Chloride 106, Carbon Dioxide 26.0, Anion Gap 5, BUN 15, Creatinine 0.71, Estim Creat Clear Calc 129.03, Est GFR (MDRD) Af Amer 149, Est GFR (MDRD) Non-Af 123, BUN/Creatinine Ratio 21.2 H, Glucose 155 H, Calcium 8.6 11/05/19 06:37: POC Glucose 149 H Current Medications Acetaminophen (Tylenol) 650 mg PO Q4H PRN PRN PRN Reason: pain 1-10, fever Last Admin: 11/04/19 12:29 Dose: 650 mg Documented by: Albuterol Sulfate (Ventolin Aerosols) 2.5 mg INHALATION Q2H PRN PRN PRN Reason: DYSPNEA Albuterol/Ipratropium (Duoneb) 3 ml INHALATION Q4HWA.RT [facility] Last Admin: 11/05/19 06:44 Dose: 3 ml Documented by: Dextrose (D50w Syringe) 0 gm IV X1 PRN; Protocol PRN Reason: Hypoglycemia Furosemide (Lasix) 40 mg PO DAILY [facility] Last Admin: 11/04/19 10:16 Dose: Not Given Documented by: Glucagon () 1 mg IM .X1 PRN PRN Reason: Hypoglycemia Guaifenesin (Mucinex) 1,200 mg PO BID [facility] Last Admin: 11/04/19 21:14 Dose: 1,200 mg Documented by: Heparin Sodium (Porcine) (Heparin Na) 5,000 unit SC Q12 [facility] Last Admin: 11/04/19 21:14 Dose: 5,000 unit Documented by: Piperacillin Sod/Tazobactam (Sod 3.375 gm/ Sodium Chloride) 50 mls @ 12.5 mls/hr IV Q8 [facility] Last Admin: 11/05/19 06:41 Dose: 12.5 mls/hr Documented by: Vancomycin IV Pharmacy to Dose (1 ea/ Sodium Chloride) 500 mls @ 250 mls/hr IV X1 PRN; Protocol PRN Reason: Rx to Dose Vancomycin HCl 2,000 mg/ (Sodium Chloride) 540 mls @ 250 mls/hr IV Q12H [facility] Last Infusion: 11/04/19 23:53 Dose: Infused Documented by: Insulin Human Lispro (Humalog Kwikpen (Bkc)) 0 unit SC ACHS [facility]; Protocol Last Admin: 11/05/19 06:41 Dose: Not Given Documented by: Ketorolac Tromethamine (Toradol (Bkc)) 30 mg IV Q8 [facility] Stop: 11/05/19 14:01 Last Admin: 11/05/19 06:38 Dose: 30 mg Documented by: Metformin HCl (Glucophage Xr) 500 mg PO DAILY@1700 [facility] Morphine Sulfate () 2 mg IV Q4H PRN PRN PRN Reason: severe pain 6-10/10 Last Admin: 11/03/19 22:24 Dose: 2 mg Documented by: Ondansetron HCl (Zofran) 4 mg IV Q8H PRN PRN PRN Reason: NAUSEA/VOMITING Oxycodone HCl (Oxyir) 5 mg PO Q4H PRN PRN PRN Reason: Pain Score 4-10/10 Last Admin: 11/04/19 10:16 Dose: 5 mg Documented by: Potassium Chloride (K-Dur) 20 meq PO DAILYCM [facility] Last Admin: 11/04/19 10:15 Dose: 20 meq Documented by: Sodium Chloride () 10 - 40 ml IV UD PRN PRN Reason: SALINE FLUSH STROKE Vital Signs/Narrative: Vital Signs Pulse Resp Pulse Ox 11/05/19 06:44 99 20 H 92 11/05/19 06:10 92 Medical Necessity - Tobacco Use Smoking Status: Current every day smoker Tobacco Use: Cigarettes Assessment/Plan All Active Problems (Last Reviewed 10/04/18 @ 14:[address] Samson Blair, DO) Pulmonary cavitary lesion (Acute) Loculated pleural effusion (Acute) Sepsis without acute organ dysfunction (Acute) Acute hyperglycemia (Acute) Sinus tachycardia by electrocardiogram (Acute) Cough productive of purulent sputum (Acute) Chest congestion (Acute) 1. Sepsis secondary to community-acquired pneumonia, improving, WBC down from 20.7 to 19.6, no fevers seen Blood cultures pending, sputum cultures, urine Legionella and Streptococcus antigen, respiratory panel are negative Continue on IV vancomycin and Zosyn ID consulted 2. Pneumonia/cavitary lesions/pleural effusion, Ultrasound guided thoracocentesis could not be done because chest US showed smal l effusion TB ruled out with negative sputum for AFB Pulmonology/ID consulted Continue on IV antibiotics as above 3. Type 2 DM, HbA1c 7.3, previously diet-controlled Continue on ISS and start on metformin 4. Stasis dermatitis/dependent edema, on daily lasix with potassium supplementation 5. Nicotine dependence, refused replacement 6. DVT PPx- Heparin SC Inpatient E&M: 09916 Subs Hosp L2
--- NOTE | 2019-11-05 08:58 | SPU_PTH ---
PATIENT: SAVANA DAILEY V LOC: [facility] U#:[id number] AGE/SX: 54/M ROOM: [facility] RE11/03/[address]: Dr. Gail Johnson MD : [id number] BED: 1 DIS: 11/06/2019 SPEC #: [id number] RECD: 11/05/19 12:15 STATUS: FILI REQ #: [id number] KRISTIN: 11/05/19 08:[address]: Gail Johnson DEPT: CYTOLOGY RECD BY: Ray Bermeo ENTERED: 11/05/19 12:17 SP TYPE: Sputum Cy OTHR DR: Dr. Samson Blair, DO Dr. Pernell Blair, DO Dr. Gamal Rodriguez, DO Dr. Juan M Baptiste MD Tissues: Sputum Procedures: Pap Stain (control) Special Stain Group II Special Stain Group I AFB Stain (control) Cytospin Fluid HEADER OPERATION: Not noted PRE-OP DIAGNOSIS: Pneumonia TISSUE SUBMITTED: Sputum for cytology #2 DIAGNOSIS CYTOLOGY Sputum for cytology #2 (cytospin and smears): Negative for malignant cells. Acute inflammation. Special stain for acid fast bacilli is negative for organisms; matched control is appropriate. See comment. JOE:carl 11/06/19 COMMENT The specimen predominantly consists of neutrophils. Clinical correlation and appropriate follow up are necessary. CYTOLOGY STUDY Slides are reviewed. CYTOLOGY GROSS Received is <1 ml of thick cloudy fluid labeled with the patient's name and and designated per the requisition as sputum. Submitted for cytology preparation. / carl 11/05/19 TC:2 CPT: 31372, 32363
[2019-11-05] MEDS: guaiFENesin 1,200 MG Tablet 1200 MG PO ×2 (09:03→21:07)
[2019-11-05] MEDS: Furosemide 40 MG Tablet PO (09:03)
[2019-11-05] MEDS: Heparin Injection (Vial) 5,000 UNIT/ML VIAL 5000 UNIT SC ×2 (09:03→21:07)
[2019-11-05 09:11] LABS: Acid Fast Stain SEE PATHOLOGY REPORT; Cytology, Body Fluid / CSF SEE PATHOLOGY REPORT
--- NOTE | 2019-11-05 10:36 | PN.ID_ITS ---
Patient Problems: Active and Suspected Problems (Last Reviewed 10/04/18 @ 14:[address] Samson Blair, DO) Pulmonary cavitary lesion (Acute) Loculated pleural effusion (Acute) Sepsis without acute organ dysfunction (Acute) Acute hyperglycemia (Acute) Sinus tachycardia by electrocardiogram (Acute) Cough productive of purulent sputum (Acute) Chest congestion (Acute) Subjective: Feeling better, no fever, no n/v/d. Still sputum but breathing better. - Physical Exam Vitals/I&O's: Vital Signs Temp Pulse Resp BP Pulse Ox 97.9 F 91 18 133/86 H 92 11/05/19 09:11 11/05/19 09:11 11/05/19 09:11 11/05/19 09:11 11/05/19 09:11 Oxygen Delivery Method Room Air Weight: 111.2 kg Body Mass Index (BMI) 33.2 Intake and Output for Last 24 Hours 11/03/19 11/04/19 11/05/19 23:59 23:59 23:59 Intake Total 3266.5 / 3266.5 2200 / 2200 50 / 50 Balance 3266.5 / 3266.5 2200 / 2200 50 / 50 General: Alert, Cooperative, No apparent distress Lungs: Rhonchi - overall much improved, Wheezes Cardiovascular: Regular rate, Regular Rhythm Abdomen: Soft, Non Tender, Non-Distended Skin: No rashes Microbiology Past 72 Hours 11/03/19 06:15 Sputum, Expectorated/Coughed Gram Stain - Final 11/03/19 06:15 Sputum, Expectorated/Coughed Respiratory Culture - Preliminary GNR Possible Haemophilus sp. 11/03/19 06:15 Urine, Clean Catch Urine Culture - Final Culture exhibits no growth. 11/03/19 07:35 Mucosa - Nasopharyngeal Respiratory Panel (PCR) - Final 11/03/19 06:15 Urine, Clean Catch Streptococcus pneumoniae Antigen (M - Final 11/03/19 06:15 Urine, Clean Catch Legionella Antigen - Final Laboratory Results 11/03/19 05:03: Diff Path Review Reviewed 11/04/19 05:14: Diff Path Review Reviewed 11/04/19 05:14: Lactate Dehydrogenase 190 11/04/19 15:15: Acid Fast Stain Pending, Miscellaneous Cytology Pending 11/04/19 18:14: POC Glucose 225 H 11/04/19 19:15: Vancomycin Trough 5.5 11/04/19 21:20: POC Glucose 217 H 11/05/19 06:25: WBC 18.6 H, RBC 4.96, Hgb 13.5, Hct 41.6, MCV 83.9, MCH 27.2, MCHC 32.5, RDW Std Deviation 39.0, RDW Coeff of Corine 12.8, Plt Count 430, MPV 9.8, Immature Gran % (Auto) 0.500, Neut % (Auto) 79.0 H, Lymph % (Auto) 11.9 L, [place] % (Auto) 8.3, Eos % (Auto) 0.2, Baso % (Auto) 0.1, Absolute Neuts (auto) 14.7 H, Absolute Lymphs (auto) 2.21, Nucleated RBC % 0, Differential Comment SCANNED, Diff Path Review May foll, Reactive Lymphocytes RARE 11/05/19 06:25: Sodium 137, Potassium 3.9, Chloride 106, Carbon Dioxide 26.0, Anion Gap 5, BUN 15, Creatinine 0.71, Estim Creat Clear Calc 129.03, Est GFR (MDRD) Af Amer 149, Est GFR (MDRD) Non-Af 123, BUN/Creatinine Ratio 21.2 H, Glucose 155 H, Calcium 8.6 11/05/19 06:37: POC Glucose 149 H 11/05/19 08:51: Acid Fast Stain Pending, Miscellaneous Cytology Pending Current Medications Acetaminophen (Tylenol) 650 mg PO Q4H PRN PRN PRN Reason: pain 1-10, fever Last Admin: 11/04/19 12:29 Dose: 650 mg Documented by: Albuterol Sulfate (Ventolin Aerosols) 2.5 mg INHALATION Q2H PRN PRN PRN Reason: DYSPNEA Albuterol/Ipratropium (Duoneb) 3 ml INHALATION Q4HWA.RT [facility] Last Admin: 11/05/19 06:44 Dose: 3 ml Documented by: Dextrose (D50w Syringe) 0 gm IV X1 PRN; Protocol PRN Reason: Hypoglycemia Furosemide (Lasix) 40 mg PO DAILY [facility] Last Admin: 11/05/19 09:03 Dose: 40 mg Documented by: Glucagon () 1 mg IM .X1 PRN PRN Reason: Hypoglycemia Guaifenesin (Mucinex) 1,200 mg PO BID [facility] Last Admin: 11/05/19 09:03 Dose: 1,200 mg Documented by: Heparin Sodium (Porcine) (Heparin Na) 5,000 unit SC Q12 [facility] Last Admin: 11/05/19 09:03 Dose: 5,000 unit Documented by: Vancomycin IV Pharmacy to Dose (1 ea/ Sodium Chloride) 500 mls @ 250 mls/hr IV X1 PRN; Protocol PRN Reason: Rx to Dose Vancomycin HCl 2,000 mg/ (Sodium Chloride) 540 mls @ 250 mls/hr IV Q12H [facility] Last Admin: 11/05/19 08:59 Dose: 250 mls/hr Documented by: Ampicillin Sodium/Sulbactam (Sodium 3 gm/ Sodium Chloride) 112 mls @ 150 mls/hr IV Q6 [facility] Insulin Human Lispro (Humalog Kwikpen (Bkc)) 0 unit SC ACHS [facility]; Protocol Last Admin: 11/05/19 06:41 Dose: Not Given Documented by: Ketorolac Tromethamine (Toradol (Bkc)) 30 mg IV Q8 [facility] Stop: 11/05/19 14:01 Last Admin: 11/05/19 06:38 Dose: 30 mg Documented by: Metformin HCl (Glucophage Xr) 500 mg PO DAILY@1700 [facility] Morphine Sulfate () 2 mg IV Q4H PRN PRN PRN Reason: severe pain 6-10/10 Last Admin: 11/03/19 22:24 Dose: 2 mg Documented by: Ondansetron HCl (Zofran) 4 mg IV Q8H PRN PRN PRN Reason: NAUSEA/VOMITING Oxycodone HCl (Oxyir) 5 mg PO Q4H PRN PRN PRN Reason: Pain Score 4-10/10 Last Admin: 11/04/19 10:16 Dose: 5 mg Documented by: Potassium Chloride (K-Dur) 20 meq PO DAILYCM [facility] Last Admin: 11/05/19 09:03 Dose: 20 meq Documented by: Sodium Chloride () 10 - 40 ml IV UD PRN PRN Reason: SALINE FLUSH Medical Necessity - Tobacco Use Smoking Status: Current every day smoker Tobacco Use: Cigarettes Route of nutrition/ use of supplements: [] Nutritional Intake: [] IV Site: [] [place] Catheter: [] - Assessment/Plan Antibiotics: [] Assessment/Plan: [] Active and Suspected Problems (Last Reviewed 10/04/18 @ 14:[address] Samson Blair, DO) Pulmonary cavitary lesion (Acute) Loculated pleural effusion (Acute) Sepsis without acute organ dysfunction (Acute) Acute hyperglycemia (Acute) Sinus tachycardia by electrocardiogram (Acute) Cough productive of purulent sputum (Acute) Chest congestion (Acute) Cavitary lesion - No clear inciting event or exposure. If smears x2 this AM are neg, ok to d/c isolation. Narrow abx to vanc/unasyn. Sputum showing haemophilus so far. Tentative plan would be for home with bactrim DS 1 tab bid and augmentin 875mg bid for 30 days and followup with pulm/ID, repeat imaging prior to stopping abx. Will follow, d/w nursing and Dr. Johnson
[2019-11-05 11:45] LABS: Pathologist Review Reviewed
--- NOTE | 2019-11-05 12:46 | PN_ITS ---
Patient Problems: Active and Suspected Problems (Last Reviewed 10/04/18 @ 14:[address] Samson Blair, DO) Pulmonary cavitary lesion (Acute) Loculated pleural effusion (Acute) Sepsis without acute organ dysfunction (Acute) Acute hyperglycemia (Acute) Sinus tachycardia by electrocardiogram (Acute) Cough productive of purulent sputum (Acute) Chest congestion (Acute) Subjective: Patient did okay overnight. Patient does report chest pressure/pain in the center and left side of his chest. Patient had a thoracic ultrasound yesterday, but was deemed to not have a pocket big enough for sampling. Patient states that his cough has significantly decreased over the last 24 hours. Patient denies any new symptomatology otherwise. - Physical Exam Vitals/I&O's: Vital Signs Temp Pulse Resp BP Pulse Ox 36.6 C 91 20 H 133/86 H 92 11/05/19 09:11 11/05/19 09:11 11/05/19 10:56 11/05/19 09:11 11/05/19 09:11 Oxygen Delivery Method Room Air Weight: 111.2 kg Body Mass Index (BMI) 33.2 Intake and Output for Last 24 Hours 11/03/19 11/04/19 11/05/19 23:59 23:59 23:59 Intake Total 3266.5 / 3266.5 2200 / 2200 50 / 50 Balance 3266.5 / 3266.5 2200 / 2200 50 / 50 General: Alert, Oriented x3, Cooperative, No apparent distress, - - No conversational dyspnea. Does appear older than stated age. Obese. HEENT: Atraumatic, PERRLA, EOMI, Normocephalic, - - No scleral icterus or injection noted Oral: Moist Mucosa, No Gingival or Mucosal Lesions/ Ulcerations Neck: Supple, No JVD, No Nodes, Trachea Midline Lungs: No wheeze, No rales, Diminished - Left greater than right, Rhonchi - Improves with cough Cardiovascular: Regular rate, Regular Rhythm, Normal S1, Normal S2, No murmurs, No rub noted, No Gallop Abdomen: Bowel Sounds Present, Soft, Non Tender, Non-Distended, Obese Extremities: No clubbing, No cyanosis, No edema Skin: - Musculoskeletal: No Tenderness to Palpation of Joints or Extremities Lymphatic: No Cervical, Supraclavicular, or Inguinal Adenopathy Neurological: Cranial nerves II-XII grossly intact, Neuro grossly intact, Motor Exam 5/5 strength throughout Psych/Mental Status: Alert and oriented to time, place, person, mood and affect Microbiology Past 72 Hours 11/03/19 06:15 Sputum, Expectorated/Coughed Gram Stain - Final 11/03/19 06:15 Sputum, Expectorated/Coughed Respiratory Culture - Preliminary GNR Possible Haemophilus sp. 11/03/19 06:15 Urine, Clean Catch Urine Culture - Final Culture exhibits no growth. 11/03/19 07:35 Mucosa - Nasopharyngeal Respiratory Panel (PCR) - Final 11/03/19 06:15 Urine, Clean Catch Streptococcus pneumoniae Antigen (M - Final 11/03/19 06:15 Urine, Clean Catch Legionella Antigen - Final Laboratory Results 11/04/19 15:15: Acid Fast Stain SEE PATHOLOGY REPORT, Miscellaneous Cytology SEE PATHOLOGY REPORT 11/04/19 18:14: POC Glucose 225 H 11/04/19 19:15: Vancomycin Trough 5.5 11/04/19 21:20: POC Glucose 217 H 11/05/19 06:25: WBC 18.6 H, RBC 4.96, Hgb 13.5, Hct 41.6, MCV 83.9, MCH 27.2, MCHC 32.5, RDW Std Deviation 39.0, RDW Coeff of Corine 12.8, Plt Count 430, MPV 9.8, Immature Gran % (Auto) 0.500, Neut % (Auto) 79.0 H, Lymph % (Auto) 11.9 L, [place] % (Auto) 8.3, Eos % (Auto) 0.2, Baso % (Auto) 0.1, Absolute Neuts (auto) 14.7 H, Absolute Lymphs (auto) 2.21, Nucleated RBC % 0, Differential Comment SCANNED, Diff Path Review Reviewed, Reactive Lymphocytes RARE 11/05/19 06:25: Sodium 137, Potassium 3.9, Chloride 106, Carbon Dioxide 26.0, Anion Gap 5, BUN 15, Creatinine 0.71, Estim Creat Clear Calc 129.03, Est GFR ( MDRD) Af Amer 149, Est GFR (MDRD) Non-Af 123, BUN/Creatinine Ratio 21.2 H, Glucose 155 H, Calcium 8.6 11/05/19 06:37: POC Glucose 149 H 11/05/19 08:51: Acid Fast Stain Pending, Miscellaneous Cytology Pending Current Medications Acetaminophen (Tylenol) 650 mg PO Q4H PRN PRN PRN Reason: pain 1-10, fever Last Admin: 11/04/19 12:29 Dose: 650 mg Documented by: Albuterol Sulfate (Ventolin Aerosols) 2.5 mg INHALATION Q2H PRN PRN PRN Reason: DYSPNEA Albuterol/Ipratropium (Duoneb) 3 ml INHALATION Q4HWA.RT [facility] Last Admin: 11/05/19 10:56 Dose: 3 ml Documented by: Dextrose (D50w Syringe) 0 gm IV X1 PRN; Protocol PRN Reason: Hypoglycemia Furosemide (Lasix) 40 mg PO DAILY [facility] Last Admin: 11/05/19 09:03 Dose: 40 mg Documented by: Glucagon () 1 mg IM .X1 PRN PRN Reason: Hypoglycemia Guaifenesin (Mucinex) 1,200 mg PO BID [facility] Last Admin: 11/05/19 09:03 Dose: 1,200 mg Documented by: Heparin Sodium (Porcine) (Heparin Na) 5,000 unit SC Q12 [facility] Last Admin: 11/05/19 09:03 Dose: 5,000 unit Documented by: Vancomycin IV Pharmacy to Dose (1 ea/ Sodium Chloride) 500 mls @ 250 mls/hr IV X1 PRN; Protocol PRN Reason: Rx to Dose Vancomycin HCl 2,000 mg/ (Sodium Chloride) 540 mls @ 250 mls/hr IV Q12H [facility] Last Admin: 11/05/19 08:59 Dose: 250 mls/hr Documented by: Ampicillin Sodium/Sulbactam (Sodium 3 gm/ Sodium Chloride) 112 mls @ 150 mls/hr IV Q6 [facility] Insulin Human Lispro (Humalog Kwikpen (Bkc)) 0 unit SC ACHS [facility]; Protocol Last Admin: 11/05/19 06:41 Dose: Not Given Documented by: Ketorolac Tromethamine (Toradol (Bkc)) 30 mg IV Q8 [facility] Stop: 11/05/19 14:01 Last Admin: 11/05/19 06:38 Dose: 30 mg Documented by: Metformin HCl (Glucophage Xr) 500 mg PO DAILY@1700 [facility] Morphine Sulfate () 2 mg IV Q4H PRN PRN PRN Reason: severe pain 6-10/10 Last Admin: 11/03/19 22:24 Dose: 2 mg Documented by: Ondansetron HCl (Zofran) 4 mg IV Q8H PRN PRN PRN Reason: NAUSEA/VOMITING Oxycodone HCl (Oxyir) 5 mg PO Q4H PRN PRN PRN Reason: Pain Score 4-10/10 Last Admin: 11/04/19 10:16 Dose: 5 mg Documented by: Potassium Chloride (K-Dur) 20 meq PO DAILYCM [facility] Last Admin: 11/05/19 09:03 Dose: 20 meq Documented by: Sodium Chloride () 10 - 40 ml IV UD PRN PRN Reason: SALINE FLUSH Clinical Impression(s) from Imaging Studies Chest Ultrasound 11/04/19 11:40 IMPRESSION: Minimal amount of left pleural fluid. Underlying left basilar atelectasis and/or infiltrate. Electronically Signed: Pravin Morales, at 15:36 EDT , Service support , Medical Necessity - Tobacco Use Smoking Status: Current every day smoker Tobacco Use: Cigarettes Assessment/Plan All Active Problems (Last Reviewed 10/04/18 @ 14:[address] Samson Blair, DO) Pulmonary cavitary lesion (Acute) Loculated pleural effusion (Acute) Sepsis without acute organ dysfunction (Acute) Acute hyperglycemia (Acute) Sinus tachycardia by electrocardiogram (Acute) Cough productive of purulent sputum (Acute) Chest congestion (Acute) RECOMMENDATIONS: 1. Continue empiric antimicrobials per ID consult. 2. Await negative AFBs to discontinue negative pressure precautions 3. May need to arrange for a PICC line for extended antibiotics. Defer to infectious disease 4. Consider echocardiogram for evaluation of endocarditis if blood cultures positive 5. Encourage incentive spirometer use and mobilize patient as tolerated. IMPRESSIONS: 1. Sepsis secondary to community-acquired pneumonia The patient presented to the hospital with shortness of breath and productive cough. Given the findings noted on CT chest, the patient will be started on broad-spectrum antimicrobials, pending infectious work-up. He remains hemodynamically stable, nonetheless. My review of the CT scan shows findings more consistent with a pulmonary abscess, but malignancy from adeno carcinoma cannot be excluded given patient's smoking history. Patient does have a significant leukocytosis, but no fever was noted overnight. Unfortunately, thoracentesis does not appear to be an option. Likely treat with empiric antibiotics from a pulmonary standpoint and then proceed with a CT-guided biopsy of right sided fluid-filled mass if there is persistence. 2. Cavitary lung lesions AFBs are currently pending. The lesions noted on CT chest could certainly be infectious or malignant in nature. The patient has no TB exposure history. For now, the patient will be treated with broad-spectrum antimicrobials. Thick- walled fluid filled cyst is suggestive of an abscess on the right. Repeat chest imaging will undoubtedly need to be completed in 6 to 8 weeks. If these lesions do not begin to resolve with treatment, would at that time consider malignant work-up with CT-guided biopsy. Cannot exclude pneumothorax complications as patient does have emphysematous changes in the area of the potential abscess. 3. History of tobacco dependency with questionable underlying obstructive lung disease Given the patient's extensive tobacco abuse history, I cannot discount the possibility that he is currently experiencing an exacerbation of possible obstructive lung disease. We will hold on prednisone given patient's diagnosis of diabetes and lack of wheezing on exam. No significant increase in wheezing over the last 24 hours after discontinuation of steroids. Smoking cessation counseling was provided to the patient. He would likely benefit from outpatient pulmonary follow-up and baseline PFTs. Inpatient E&M: [id number] [facility] Hosp L3
[2019-11-05 12:55] LABS: Bedside Glucose 88 mg/dL (70-110)
[2019-11-05] MEDS: 0.9% Saline Lock 10 ML Syringe IV ×3 (14:45→18:31)
[2019-11-05 16:56] LABS: Bedside Glucose 132 mg/dL (70-110)
[2019-11-05] MEDS: metFORMIN (XR) 500 MG Tablet PO (18:31)
[2019-11-05] MEDS: Insulin Lispro 100 UNIT/ML INSULN.PEN SC (21:07)
[2019-11-05] MEDS: Acetaminophen 325 MG Tablet 650 MG PO (21:08)
[2019-11-05 21:45] LABS: Bedside Glucose 153 mg/dL (70-110)
--- NOTE | 2019-11-05 23:15 | NURSING ---
Report received from Verona Noyola RN on this pt. This nurse taking over care of this pt. at this time.
--- NOTE | 2019-11-05 23:15 | NURSING ---
Verbal report given to JACE Burnett. She will resume care of this patient at this time.
[2019-11-06] VITALS (10 sets, daily range): BP systolic 138–141; BP diastolic 60–93; PULSE 79–110; RESP 16–20; TEMP 36.8; O2SAT 95–97
[2019-11-06] MEDS: Ipratropium/Albuterol Sulfate 3 ML AMPUL.NEB INHALATION ×4 (03:22→14:13)
[2019-11-06 07:05] LABS: Bedside Glucose 103 mg/dL (70-110)
[2019-11-06 07:47] LABS: Absolute Lymphocyte Count 2.87 X10^3/uL (0.83-4.51); Absolute Neutrophil Count 10.5 X10^3/uL (2.0-7.7); Basophil# 0.04 X10^3/uL; Basophil% 0.3 % (0-1); Eosinophil# 0.13 X10^3/uL; Eosinophils% 0.9 % (0-5); Hematocrit 42.4 % (40-54); Hemoglobin 13.3 g/dL (13.0-16.5); Lymphocyte # 2.87 X10^3/ul (4.0); Mean Corp Hgb Conc 31.4 g/dL (32-36); Mean Corpuscular Hgb 27.3 pg (27.0-32.0); Mean Corpuscular Volume 86.9 fL (80-94); Mean Platelet Vol. 10.1 fl (6.2-12.0); Monocyte# 1.51 X10^3/uL; NRBC Flagged by Analyzer 0 % (0-5); Neutrophil # 10.51 X10^3/uL (2.7-7.7); Neutrophil % 69.3 % (47-70); POSITIVE DIFFERENTIAL YES; Platelet Count 427 K/mm3 (150-450); RBC Distribution Width SD 40.6 fl (35.1-43.9); Red Blood Count 4.88 M/mm3 (4.6-6.2); White Blood Count 15.1 K/mm3 (4.4-11.0)
[2019-11-06 07:49] LABS: Differential Indicated SCAN CRITERIA MET
[2019-11-06 08:14] LABS: Platelet Estimate ADEQUATE (ADEQ); Red Cell Morphology NORM C+C NORMAL (NORM C&C)
[2019-11-06 08:16] LABS: Anion Gap 6 (5-15); BUN 14 mg/dL (7-18); BUN/Creat Ratio 20.9 RATIO (10-20); Calcium,Total 8.6 mg/dL (8.5-10.1); Chloride 107 mmol/L (98-107); Creatinine, Serum 0.67 mg/dL (0.70-1.30); EST Glomerular Filtration Rate 131 mL/min (>60); Est Glom Filt Rate - Afr Amer 158 mL/min (>60); Estimated Creatinine Clearance 136.73 ml/min; Glucose 121 mg/dL (74-106); Potassium 4.2 mmol/L (3.5-5.1); Sodium Level 139 mmol/L (136-145)
[2019-11-06 08:18] LABS: Vancomycin, Trough Level 8.1 ug/mL (5.0-15.0)
--- NOTE | 2019-11-06 08:37 | PCM.PN.HOSP ---
Patient Problems: Active and Suspected Problems (Last Reviewed 10/04/18 @ 14:[address] Samson Blair, DO) Pulmonary cavitary lesion (Acute) Loculated pleural effusion (Acute) Sepsis without acute organ dysfunction (Acute) Acute hyperglycemia (Acute) Sinus tachycardia by electrocardiogram (Acute) Cough productive of purulent sputum (Acute) Chest congestion (Acute) Reason for Visit: Follow-up on sepsis secondary to community-acquired pneumonia, cavitary lesions Subjective: Patient was seen and examined. He feels much improved. Denies any fever or chills. Has minimal production of sputum. Objective: Physical exam: General: Alert, Oriented x3, Cooperative, in mild distress, Well developed, Well nourished HEENT: Atraumatic, PERRLA, EOMI, Normocephalic Oral: Moist Mucosa Neck: Supple, No JVD, Negative Carotid Bruits, Trachea Midline, Thyroid Normal Size and Texture Lungs: Diminished - Diminished breath sounds are noted over the left base Cardiovascular: Regular rate, Regular Rhythm, Normal S1, Normal S2, No murmurs, Tachycardic Abdomen: Bowel Sounds Present, Soft, Non Tender, Non-Distended, No hernias noted Extremities: Edema - Mild pitting edema is noted over the patient's lower legs Skin: Rash Present - Stasis dermatitis changes are noted over patient's lower legs bilaterally Musculoskeletal: No Tenderness to Palpation of Joints or Extremities Neurological: Cranial nerves II-XII grossly intact, Neuro grossly intact, Sensory exam intact to light touch and pain Psych/Mental Status: Normal Affect, Appropriate, Alert and oriented to time, place, person, mood and affect Vitals/I&O's: Vital Signs Temp Pulse Resp BP Pulse Ox 98.3 F 84 20 H 141/93 H 97 11/06/19 03:00 11/06/19 07:14 11/06/19 07:14 11/06/19 03:00 11/06/19 07:14 Oxygen Delivery Method Room Air Weight: 111.2 kg Body Mass Index (BMI) 33.2 Intake and Output for Last 24 Hours 11/04/19 11/05/19 11/06/19 23:59 23:59 23:59 Intake Total 2200 / 2200 2794 / 2794 424 / 424 Balance 2200 / 2200 2794 / 2794 424 / 424 Microbiology Past 72 Hours 11/03/19 05:03 Blood Culture (Wb) - Anticubital Left Blood Culture - Preliminary No growth in 48 hours. 11/03/19 05:05 Blood Culture (Wb) - Left Hand Blood Culture - Preliminary No growth in 48 hours. 11/03/19 06:15 Sputum, Expectorated/Coughed Gram Stain - Final 11/03/19 06:15 Sputum, Expectorated/Coughed Respiratory Culture - Final Haemophilus influenzae Mixed Maribel 11/03/19 06:15 Urine, Clean Catch Urine Culture - Final Culture exhibits no growth. 11/03/19 07:35 Mucosa - Nasopharyngeal Respiratory Panel (PCR) - Final 11/03/19 06:15 Urine, Clean Catch Streptococcus pneumoniae Antigen (M - Final 11/03/19 06:15 Urine, Clean Catch Legionella Antigen - Final Laboratory Results 11/04/19 15:15: Acid Fast Stain SEE PATHOLOGY REPORT, Miscellaneous Cytology SEE PATHOLOGY REPORT 11/05/19 06:25: Diff Path Review Reviewed 11/05/19 08:51: Acid Fast Stain Pending, Miscellaneous Cytology Pending 11/05/19 12:48: POC Glucose 88 11/05/19 16:53: POC Glucose 132 H 11/05/19 21:04: POC Glucose 153 H 11/06/19 06:49: POC Glucose 103 11/06/19 07:35: Vancomycin Trough 8.1 11/06/19 07:35: WBC 15.1 H, RBC 4.88, Hgb 13.3, Hct 42.4, MCV 86.9, MCH 27.3, MCHC 31.4 L, RDW Std Deviation 40.6, RDW Coeff of Corine 13.0, Plt Count 427, MPV 10.1, Immature Gran % (Auto) 0.500, Neut % (Auto) 69.3, Lymph % (Auto) 19.0, [place] % (Auto) 10.0, Eos % (Auto) 0.9, Baso % (Auto) 0.3, Absolute Neuts (auto) 10.5 H, Absolute Lymphs (auto) 2.87, Nucleated RBC % 0, Differential Comment , Diff Path Review May , Platelet Estimate ADEQUATE, RBC Morphology NORM C+C 11/06/19 07:35: Sodium 139, Potassium 4.2, Chloride 107, Carbon Dioxide 26.0, Anion Gap 6, BUN 14, Creatinine 0.67 L, Estim Creat Clear Calc 136.73, Est GFR (MDRD) Af Amer 158, Est GFR (MDRD) Non-Af 131, BUN/Creatinine Ratio 20.9 H, Glucose 121 H, Calcium 8.6 Current Medications Acetaminophen (Tylenol) 650 mg PO Q4H PRN PRN PRN Reason: pain 1-10, fever Last Admin: 11/05/19 21:08 Dose: 650 mg Documented by: Albuterol Sulfate (Ventolin Aerosols) 2.5 mg INHALATION Q2H PRN PRN PRN Reason: DYSPNEA Albuterol/Ipratropium (Duoneb) 3 ml INHALATION Q4HWA.RT [facility] Last Admin: 11/06/19 07:14 Dose: 3 ml Documented by: Dextrose (D50w Syringe) 0 gm IV X1 PRN; Protocol PRN Reason: Hypoglycemia Furosemide (Lasix) 40 mg PO DAILY [facility] Last Admin: 11/05/19 09:03 Dose: 40 mg Documented by: Glucagon () 1 mg IM .X1 PRN PRN Reason: Hypoglycemia Guaifenesin (Mucinex) 1,200 mg PO BID [facility] Last Admin: 11/05/19 21:07 Dose: 1,200 mg Documented by: Heparin Sodium (Porcine) (Heparin Na) 5,000 unit SC Q12 [facility] Last Admin: 11/05/19 21:07 Dose: 5,000 unit Documented by: Vancomycin IV Pharmacy to Dose (1 ea/ Sodium Chloride) 500 mls @ 250 mls/hr IV X1 PRN; Protocol PRN Reason: Rx to Dose Vancomycin HCl 2,000 mg/ (Sodium Chloride) 540 mls @ 250 mls/hr IV Q12H [facility] Last Infusion: 11/05/19 21:55 Dose: Infused Documented by: Ampicillin Sodium/Sulbactam (Sodium 3 gm/ Sodium Chloride) 112 mls @ 150 mls/hr IV Q6 [facility] Last Infusion: 11/06/19 06:37 Dose: Infused Documented by: Insulin Human Lispro (Humalog Kwikpen (Bkc)) 0 unit SC ACHS [facility]; Protocol Last Admin: 11/06/19 06:59 Dose: Not Given Documented by: Metformin HCl (Glucophage Xr) 500 mg PO DAILY@1700 [facility] Last Admin: 11/05/19 18:31 Dose: 500 mg Documented by: Morphine Sulfate () 2 mg IV Q4H PRN PRN PRN Reason: severe pain 6-10/10 Last Admin: 11/03/19 22:24 Dose: 2 mg Documented by: Ondansetron HCl (Zofran) 4 mg IV Q8H PRN PRN PRN Reason: NAUSEA/VOMITING Oxycodone HCl (Oxyir) 5 mg PO Q4H PRN PRN PRN Reason: Pain Score 4-10/10 Last Admin: 11/04/19 10:16 Dose: 5 mg Documented by: Potassium Chloride (K-Dur) 20 meq PO DAILYCM [facility] Last Admin: 11/05/19 09:03 Dose: 20 meq Documented by: Sodium Chloride () 10 - 40 ml IV UD PRN PRN Reason: SALINE FLUSH Last Admin: 11/05/19 18:31 Dose: 10 ml Documented by: STROKE Vital Signs/Narrative: Vital Signs Pulse Resp Pulse Ox 11/06/19 07:14 84 20 H 97 11/06/19 07:01 93 Medical Necessity - Tobacco Use Smoking Status: Current every day smoker Tobacco Use: Cigarettes Assessment/Plan All Active Problems (Last Reviewed 10/04/18 @ 14:[address] Samson Blair, DO) Pulmonary cavitary lesion (Acute) Loculated pleural effusion (Acute) Sepsis without acute organ dysfunction (Acute) Acute hyperglycemia (Acute) Sinus tachycardia by electrocardiogram (Acute) Cough productive of purulent sputum (Acute) Chest congestion (Acute) 1. Sepsis secondary to community-acquired pneumonia, improving, WBC improved to 15.1. No fevers seen here. Blood cultures negative sputum cultures, urine Legionella and Streptococcus antigen, respiratory panel are negative Sputum for AFB cultures are pending Continue on IV vancomycin and Zosyn ID consulted 2. Pneumonia/cavitary lesions/pleural effusion, TB ruled out Ultrasound guided thoracocentesis could not be done because chest US showed small effusion Pulmonology/ID consulted Continue on IV antibiotics as above 3. Type 2 DM, HbA1c 7.3, previously diet-controlled Blood sugars are better controlled, continue on metformin, blood glucose checks with insulin sliding scale 4. Stasis dermatitis/dependent edema, on daily lasix with potassium supplementation 5. Nicotine dependence, refused replacement 6. DVT PPx- Heparin SC Inpatient E&M: 36216 Subs Hosp L2
[2019-11-06] MEDS: Heparin Injection (Vial) 5,000 UNIT/ML VIAL 5000 UNIT SC (09:18)
[2019-11-06] MEDS: guaiFENesin 1,200 MG Tablet 1200 MG PO (09:18)
[2019-11-06] MEDS: Furosemide 40 MG Tablet PO (09:18)
[2019-11-06] MEDS: Acetaminophen 325 MG Tablet 650 MG PO (09:25)
--- NOTE | 2019-11-06 11:23 | PCM.RX.CS ---
Consult Pharmacy has been consulted to manage selected antiobiotic: Vancomycin Type of Consult: Follow-up Suspected Infection: Pneumonia Prior Doses of Antibiotics Received/Current Regimen: Has been on 2gm iv q12h. Labs: Sodium 139 mmol/L (136-145) 11/06/19 07:35 Potassium 4.2 mmol/L (3.5-5.1) 11/06/19 07:35 Chloride 107 mmol/L (98-107) 11/06/19 07:35 Carbon Dioxide 26.0 mmol/L (21.0-32.0) 11/06/19 07:35 Anion Gap 6 (5-15) 11/06/19 07:35 BUN 14 mg/dL (7-18) 11/06/19 07:35 Creatinine 0.67 mg/dL (0.70-1.30) L 11/06/19 07:35 Est GFR (MDRD) Af Amer 158 mL/min (>60) 11/06/19 07:35 Est GFR (MDRD) Non-Af 131 mL/min (>60) 11/06/19 07:35 BUN/Creatinine Ratio 20.9 RATIO (10-20) H 11/06/19 07:35 Glucose 121 mg/dL (74-106) H 11/06/19 07:35 Vancomycin Trough 8.1 ug/mL (5.0-15.0) 11/06/19 07:35 Microbiology: Microbiology 11/03/19 05:03 Blood Culture (Wb) - Anticubital Left Blood Culture - Preliminary No growth in 48 hours. 11/03/19 05:05 Blood Culture (Wb) - Left Hand Blood Culture - Preliminary No growth in 48 hours. 11/03/19 06:15 Sputum, Expectorated/Coughed Gram Stain - Final 11/03/19 06:15 Sputum, Expectorated/Coughed Respiratory Culture - Final Haemophilus influenzae Mixed Maribel 11/03/19 06:15 Urine, Clean Catch Urine Culture - Final Culture exhibits no growth. 11/03/19 07:35 Mucosa - Nasopharyngeal Respiratory Panel (PCR) - Final 11/03/19 06:15 Urine, Clean Catch Streptococcus pneumoniae Antigen (M - Final 11/03/19 06:15 Urine, Clean Catch Legionella Antigen - Final Weight used for dosin kg Estimated Creatinine Clearance: >100ml/min Goal Trough: 15-20 mcg/mL Pharmacy Plan for Drug Dosing: Today's trough level 8.1 (goal 15-20mcg/ml). Renal function reviewed as Cr 0.67 with CrCl >100. Will increase dose to 1750mg iv q8h and get another trough level on 11.07.19 before 4th dose of new regimen. Pharmacy Service will continue to monitor and adjust dosing as required. Follow-Up Labs: Trough Vancomycin - ..20 2130 before 2200 dose
[2019-11-06 11:36] LABS: Bedside Glucose 146 mg/dL (70-110)
[2019-11-06] MEDS: 0.9% Saline Lock 10 ML Syringe IV (12:59)
--- NOTE | 2019-11-06 14:49 | PCM.PN.ID ---
Patient Problems: Active and Suspected Problems (Last Reviewed 10/04/18 @ 14:[address] Samson Blair, DO) Pulmonary cavitary lesion (Acute) Loculated pleural effusion (Acute) Sepsis without acute organ dysfunction (Acute) Acute hyperglycemia (Acute) Sinus tachycardia by electrocardiogram (Acute) Cough productive of purulent sputum (Acute) Chest congestion (Acute) Subjective: Feeling good, walked the halls, no fever - Physical Exam Vitals/I&O's: Vital Signs Temp Pulse Resp BP Pulse Ox 98.2 F 89 20 H 141/82 H 95 11/06/19 13:56 11/06/19 14:14 11/06/19 14:14 11/06/19 13:56 11/06/19 14:14 Oxygen Delivery Method Room Air Weight: 111.2 kg Body Mass Index (BMI) 33.2 Intake and Output for Last 24 Hours 11/04/19 11/05/19 11/06/19 23:59 23:59 23:59 Intake Total 2200 / 2200 2794 / 2794 664 / 664 Balance 2200 / 2200 2794 / 2794 664 / 664 General: Alert, Cooperative, No apparent distress Lungs: Clear to auscultation, Normal air movement Cardiovascular: Regular rate, Regular Rhythm Abdomen: Soft, Non Tender, Non-Distended Skin: No rashes Microbiology Past 72 Hours 11/03/19 05:03 Blood Culture (Wb) - Anticubital Left Blood Culture - Preliminary No growth in 48 hours. 11/03/19 05:05 Blood Culture (Wb) - Left Hand Blood Culture - Preliminary No growth in 48 hours. 11/03/19 06:15 Sputum, Expectorated/Coughed Gram Stain - Final 11/03/19 06:15 Sputum, Expectorated/Coughed Respiratory Culture - Final Haemophilus influenzae Mixed Maribel 11/03/19 06:15 Urine, Clean Catch Urine Culture - Final Culture exhibits no growth. 11/03/19 07:35 Mucosa - Nasopharyngeal Respiratory Panel (PCR) - Final Laboratory Results 11/05/19 08:51: Acid Fast Stain SEE PATHOLOGY REPORT, Miscellaneous Cytology SEE PATHOLOGY REPORT 11/05/19 16:53: POC Glucose 132 H 11/05/19 21:04: POC Glucose 153 H 11/06/19 06:49: POC Glucose 103 11/06/19 07:35: Vancomycin Trough 8.1 11/06/19 07:35: WBC 15.1 H, RBC 4.88, Hgb 13.3, Hct 42.4, MCV 86.9, MCH 27.3, MCHC 31.4 L, RDW Std Deviation 40.6, RDW Coeff of Corine 13.0, Plt Count 427, MPV 10.1, Immature Gran % (Auto) 0.500, Neut % (Auto) 69.3, Lymph % (Auto) 19.0, [place] % (Auto) 10.0, Eos % (Auto) 0.9, Baso % (Auto) 0.3, Absolute Neuts (auto) 10.5 H, Absolute Lymphs (auto) 2.87, Nucleated RBC % 0, Differential Comment , Diff Path Review November, Platelet Estimate ADEQUATE, RBC Morphology NORM C+C 11/06/19 07:35: Sodium 139, Potassium 4.2, Chloride 107, Carbon Dioxide 26.0, Anion Gap 6, BUN 14, Creatinine 0.67 L, Estim Creat Clear Calc 136.73, Est GFR (MDRD) Af Amer 158, Est GFR (MDRD) Non-Af 131, BUN/Creatinine Ratio 20.9 H, Glucose 121 H, Calcium 8.6 11/06/19 11:10: POC Glucose 146 H Current Medications Acetaminophen (Tylenol) 650 mg PO Q4H PRN PRN PRN Reason: pain 1-10, fever Last Admin: 11/06/19 09:25 Dose: 650 mg Documented by: Albuterol Sulfate (Ventolin Aerosols) 2.5 mg INHALATION Q2H PRN PRN PRN Reason: DYSPNEA Albuterol/Ipratropium (Duoneb) 3 ml INHALATION Q4HWA.RT [facility] Last Admin: 11/06/19 14:13 Dose: 3 ml Documented by: Dextrose (D50w Syringe) 0 gm IV X1 PRN; Protocol PRN Reason: Hypoglycemia Furosemide (Lasix) 40 mg PO DAILY [facility] Last Admin: 11/06/19 09:18 Dose: 40 mg Documented by: Glucagon () 1 mg IM .X1 PRN PRN Reason: Hypoglycemia Guaifenesin (Mucinex) 1,200 mg PO BID [facility] Last Admin: 11/06/19 09:18 Dose: 1,200 mg Documented by: Heparin Sodium (Porcine) (Heparin Na) 5,000 unit SC Q12 [facility] Last Admin: 11/06/19 09:18 Dose: 5,000 unit Documented by: Vancomycin IV Pharmacy to Dose (1 ea/ Sodium Chloride) 500 mls @ 250 mls/hr IV X1 PRN; Protocol PRN Reason: Rx to Dose Ampicillin Sodium/Sulbactam (Sodium 3 gm/ Sodium Chloride) 112 mls @ 150 mls/hr IV Q6 [facility] Last Admin: 11/06/19 12:59 Dose: 150 mls/hr Documented by: Vancomycin HCl 1,750 mg/ (Sodium Chloride) 535 mls @ 250 mls/hr IV Q8H [facility] Insulin Human Lispro (Humalog Kwikpen (Bkc)) 0 unit SC ACHS [facility]; Protocol Last Admin: 11/06/19 12:33 Dose: Not Given Documented by: Metformin HCl (Glucophage Xr) 500 mg PO DAILY@1700 [facility] Last Admin: 11/05/19 18:31 Dose: 500 mg Documented by: Morphine Sulfate () 2 mg IV Q4H PRN PRN PRN Reason: severe pain 6-10/10 Last Admin: 11/03/19 22:24 Dose: 2 mg Documented by: Ondansetron HCl (Zofran) 4 mg IV Q8H PRN PRN PRN Reason: NAUSEA/VOMITING Oxycodone HCl (Oxyir) 5 mg PO Q4H PRN PRN PRN Reason: Pain Score 4-10/10 Last Admin: 11/04/19 10:16 Dose: 5 mg Documented by: Sodium Chloride () 10 - 40 ml IV UD PRN PRN Reason: SALINE FLUSH Last Admin: 11/06/19 12:59 Dose: 10 ml Documented by: Medical Necessity - Tobacco Use Smoking Status: Current every day smoker Tobacco Use: Cigarettes Route of nutrition/ use of supplements: [] Nutritional Intake: [] IV Site: [] [place] Catheter: [] - Assessment/Plan Antibiotics: [] Assessment/Plan: [] Active and Suspected Problems (Last Reviewed 10/04/18 @ 14:[address] Samson Blair, DO) Pulmonary cavitary lesion (Acute) Loculated pleural effusion (Acute) Sepsis without acute organ dysfunction (Acute) Acute hyperglycemia (Acute) Sinus tachycardia by electrocardiogram (Acute) Cough productive of purulent sputum (Acute) Chest congestion (Acute) Cavitary lesion - No clear inciting event or exposure. AFB smear x2 neg. No evidence of TB, out of isolation. Sputum showing haemophilus so far. Plan is for home with bactrim DS 1 tab bid, keflex tid, and flagyl tid for 30 days and followup with pulm/ID, repeat imaging prior to stopping abx. Check BMP in one week. ID followup in 2 weeks. Will follow, d/w nursing and Dr. Tyler
--- NOTE | 2019-11-06 15:04 | CASEMGMT ---
SW utilized [facility] prescription assistance program for patient as he does not have insurance and cannot afford the medications prescribed. Noreen PERSAUD
--- NOTE | 2019-11-06 15:24 | PN_ITS ---
Patient Problems: Active and Suspected Problems (Last Reviewed 10/04/18 @ 14:[address] Samson Blair, DO) Pulmonary cavitary lesion (Acute) Loculated pleural effusion (Acute) Sepsis without acute organ dysfunction (Acute) Acute hyperglycemia (Acute) Sinus tachycardia by electrocardiogram (Acute) Cough productive of purulent sputum (Acute) Chest congestion (Acute) Subjective: Patient continues to improve from a respiratory standpoint. Patient is on room air and doing well. Cough is much improved compared to previous. Objective: AFB negative x3 - Physical Exam Vitals/I&O's: Vital Signs Temp Pulse Resp BP Pulse Ox 36.8 C 110 H 20 H 141/82 H 95 11/06/19 13:56 11/06/19 14:59 11/06/19 14:14 11/06/19 13:56 11/06/19 14:14 Oxygen Delivery Method Room Air Weight: 111.2 kg Body Mass Index (BMI) 33.2 Intake and Output for Last 24 Hours 11/04/19 11/05/19 11/06/19 23:59 23:59 23:59 Intake Total 2200 / 2200 2794 / 2794 1316 / 1316 Balance 2200 / 2200 2794 / 2794 1316 / 1316 General: Alert, Oriented x3, Cooperative, No apparent distress, Well developed, Well nourished, - - Obese. Speaking full sentences. HEENT: Atraumatic, PERRLA, EOMI, Normocephalic, - - No scleral icterus or injection Oral: Moist Mucosa, No Gingival or Mucosal Lesions/ Ulcerations Neck: Supple, No JVD, No Nodes, Trachea Midline Lungs: No wheeze, No rales, Diminished, Rhonchi - Improves with cough Cardiovascular: Regular rate, Regular Rhythm, Normal S1, Normal S2, No murmurs, No rub noted, No Gallop Abdomen: Bowel Sounds Present, Soft, Non Tender, Non-Distended, Obese Extremities: No clubbing, No cyanosis, No edema, Capillary Refill Less than 3 Seconds Skin: No rashes, No breakdown Musculoskeletal: No Tenderness to Palpation of Joints or Extremities Lymphatic: No Cervical, Supraclavicular, or Inguinal Adenopathy Neurological: Cranial nerves II-XII grossly intact, Neuro grossly intact, Motor Exam 5/5 strength throughout Psych/Mental Status: Alert and oriented to time, place, person, mood and affect Microbiology Past 72 Hours 11/03/19 05:03 Blood Culture (Wb) - Anticubital Left Blood Culture - Prelimi nary No growth in 48 hours. 11/03/19 05:05 Blood Culture (Wb) - Left Hand Blood Culture - Preliminary No growth in 48 hours. 11/03/19 06:15 Sputum, Expectorated/Coughed Gram Stain - Final 11/03/19 06:15 Sputum, Expectorated/Coughed Respiratory Culture - Final Haemophilus influenzae Mixed Maribel 11/03/19 06:15 Urine, Clean Catch Urine Culture - Final Culture exhibits no growth. 11/03/19 07:35 Mucosa - Nasopharyngeal Respiratory Panel (PCR) - Final Laboratory Results 11/05/19 08:51: Acid Fast Stain SEE PATHOLOGY REPORT, Miscellaneous Cytology SEE PATHOLOGY REPORT 11/05/19 16:53: POC Glucose 132 H 11/05/19 21:04: POC Glucose 153 H 11/06/19 06:49: POC Glucose 103 11/06/19 07:35: Vancomycin Trough 8.1 11/06/19 07:35: WBC 15.1 H, RBC 4.88, Hgb 13.3, Hct 42.4, MCV 86.9, MCH 27.3, MCHC 31.4 L, RDW Std Deviation 40.6, RDW Coeff of Corine 13.0, Plt Count 427, MPV 10.1, Immature Gran % (Auto) 0.500, Neut % (Auto) 69.3, Lymph % (Auto) 19.0, [place] % (Auto) 10.0, Eos % (Auto) 0.9, Baso % (Auto) 0.3, Absolute Neuts (auto) 10.5 H, Absolute Lymphs (auto) 2.87, Nucleated RBC % 0, Differential Comment , Diff Path Review May foll, Platelet Estimate ADEQUATE, RBC Morphology NORM C+C 11/06/19 07:35: Sodium 139, Potassium 4.2, Chloride 107, Carbon Dioxide 26.0, Anion Gap 6, BUN 14, Creatinine 0.67 L, Estim Creat Clear Calc 136.73, Est GFR (MDRD) Af Amer 158, Est GFR (MDRD) Non-Af 131, BUN/Creatinine Ratio 20.9 H, Glucose 121 H, Calcium 8.6 11/06/19 11:10: POC Glucose 146 H Current Medications Acetaminophen (Tylenol) 650 mg PO Q4H PRN PRN PRN Reason: pain 1-10, fever Last Admin: 11/06/19 09:25 Dose: 650 mg Documented by: Albuterol Sulfate (Ventolin Aerosols) 2.5 mg INHALATION Q2H PRN PRN PRN Reason: DYSPNEA Albuterol/Ipratropium (Duoneb) 3 ml INHALATION Q4HWA.RT [facility] Last Admin: 11/06/19 14:13 Dose: 3 ml Documented by: Dextrose (D50w Syringe) 0 gm IV X1 PRN; Protocol PRN Reason: Hypoglycemia Furosemide (Lasix) 40 mg PO DAILY [facility] Last Admin: 11/06/19 09:18 Dose: 40 mg Documented by: Glucagon () 1 mg IM .X1 PRN PRN Reason: Hypoglycemia Guaifenesin (Mucinex) 1,200 mg PO BID [facility] Last Admin: 11/06/19 09:18 Dose: 1,200 mg Documented by: Heparin Sodium (Porcine) (Heparin Na) 5,000 unit SC Q12 [facility] Last Admin: 11/06/19 09:18 Dose: 5,000 unit Documented by: Vancomycin IV Pharmacy to Dose (1 ea/ Sodium Chloride) 500 mls @ 250 mls/hr IV X1 PRN; Protocol PRN Reason: Rx to Dose Ampicillin Sodium/Sulbactam (Sodium 3 gm/ Sodium Chloride) 112 mls @ 150 mls/hr IV Q6 [facility] Last Infusion: 11/06/19 15:14 Dose: Infused Documented by: Vancomycin HCl 1,750 mg/ (Sodium Chloride) 535 mls @ 250 mls/hr IV Q8H [facility] Insulin Human Lispro (Humalog Kwikpen (Bkc)) 0 unit SC ACHS [facility]; Protocol Last Admin: 11/06/19 12:33 Dose: Not Given Documented by: Metformin HCl (Glucophage Xr) 500 mg PO DAILY@1700 [facility] Last Admin: 11/05/19 18:31 Dose: 500 mg Documented by: Morphine Sulfate () 2 mg IV Q4H PRN PRN PRN Reason: severe pain 6-10/10 Last Admin: 11/03/19 22:24 Dose: 2 mg Documented by: Ondansetron HCl (Zofran) 4 mg IV Q8H PRN PRN PRN Reason: NAUSEA/VOMITING Oxycodone HCl (Oxyir) 5 mg PO Q4H PRN PRN PRN Reason: Pain Score 4-10/10 Last Admin: 11/04/19 10:16 Dose: 5 mg Documented by: Sodium Chloride () 10 - 40 ml IV UD PRN PRN Reason: SALINE FLUSH Last Admin: 11/06/19 12:59 Dose: 10 ml Documented by: Medical Necessity - Tobacco Use Smoking Status: Current every day smoker Tobacco Use: Cigarettes Assessment/Plan All Active Problems (Last Reviewed 10/04/18 @ 14:[address] Samson Blair, DO) Pulmonary cavitary lesion (Acute) Loculated pleural effusion (Acute) Sepsis without acute organ dysfunction (Acute) Acute hyperglycemia (Acute) Sinus tachycardia by electrocardiogram (Acute) Cough productive of purulent sputum (Acute) Chest congestion (Acute) RECOMMENDATIONS: 1. Continue antimicrobials per ID consult. 2. Okay to discharge from a pulmonary perspective 3. Virtual visit with nurse practitioner in 2 weeks following discharge. Repeat CT scan in 6 to 8 weeks 4. Walking oximetry prior to discharge 5. Encourage incentive spirometer use and mobilize patient as tolerated. IMPRESSIONS: 1. Sepsis secondary to community-acquired pneumonia The patient presented to the hospital with shortness of breath and productive cough. Given the findings noted on CT chest, the patient will be started on broad-spectrum antimicrobials, pending infectious work-up. He remains hemodynamically stable, nonetheless. My review of the CT scan shows findings more consistent with a pulmonary abscess, but malignancy from adenocarcinoma cannot be excluded given patient's smoking history. Patient is growing H. influenzae in his sputum. This is likely not the cause of the cavitation. Spoke with infectious disease and likely will be discharged on oral medications. Patient will need a repeat CAT scan in 6 to 8 weeks to see if there is improvement. 2. Cavitary lung lesions AFBs are currently pending. The lesions noted on CT chest could certainly be infectious or malignant in nature. The patient has no TB exposure history. For now, the patient will be treated with broad-spectrum antimicrobials. Thick- walled fluid filled cyst is suggestive of an abscess on the right. Repeat chest imaging will undoubtedly need to be completed in 6 to 8 weeks. If these lesions do not begin to resolve with treatment, would at that time consider malignant work-up with CT-guided biopsy. Cannot exclude pneumothorax complications as patient does have emphysematous changes in the area of the potential abscess. Anticipate complete PFT as an outpatient. 3. History of tobacco dependency with questionable underlying obstructive lung disease Given the patient's extensive tobacco abuse history, I cannot discount the possibility that he is currently experiencing an exacerbation of possible obstructive lung disease. We will hold on prednisone given patient's diagnosis of diabetes and lack of wheezing on exam. No significant increase in wheezing over the last 48 hours after discontinuation of steroids. Smoking cessation counseling was provided to the patient. He would likely benefit from outpatient pulmonary follow-up and baseline PFTs. Inpatient E&M: 58254 Subs Hosp L2
--- NOTE | 2019-11-06 15:58 | DCINST_ITS ---
- Discharge Diagnoses Current Active Problems: Current Active and Chronic Problems (Last Reviewed 10/04/18 @ 14:[address] Samson Blair DO) Pulmonary cavitary lesion (Acute) Loculated pleural effusion (Acute) Sepsis without acute organ dysfunction (Acute) Acute hyperglycemia (Acute) Sinus tachycardia by electrocardiogram (Acute) Cough productive of purulent sputum (Acute) Chest congestion (Acute) Reason(s) for Visit for Discharge Instructions: cough, pneumonia You will use the following diet at home:: Calorie/Carbohydrate Controlled (specify 1200, 1400, etc), Cardiac Your food should be the consistency of: Regular Your liquids should be the consistency of: Regular/Thin Discharge Activity: Return to Normal Activity Additional Instructions: Complete your antibiotics. Continue to monitor your blood sugar. Keep yourself hydrated. Continue to use your incentive spirometer. Allergies/Adverse Reactions: Allergies No Known Allergies Allergy (Verified 11/03/19 05:48) Medications to take at Discharge furosemide 40 mg tablet 40 mg PO DAILY #30 tab 07/04/18 Cephalexin [Keflex] 500 mg PO Q8 #90 cap 11/06/19 Guaifenesin [Mucinex] 1,200 mg PO BID 7 Days #14 tab 11/06/19 Metronidazole [Flagyl] 500 mg PO TID #90 tab 11/06/19 Smz/Tmp Ds [Bactrim Ds] 1 tab PO BID #60 tab 11/06/19 metFORMIN (XR) [Glucophage Xr] 500 mg PO DAILY@1700 30 Days #30 tab 11/06/19 The following prescriptions were given: Smz/Tmp Ds [Bactrim Ds] 1 tab PO BID #60 tab Transmission Status: Received by [facility] Metronidazole [Flagyl] 500 mg PO TID #90 tab Transmission Status: Received by [facility] metFORMIN (XR) [Glucophage Xr] 500 mg PO DAILY@1700 30 Days #30 tab Transmission Status: Pending to [facility] Cephalexin [Keflex] 500 mg PO Q8 #90 cap Transmission Status: Received by [facility] Guaifenesin [Mucinex] 1,200 mg PO BID 7 Days #14 tab Transmission Status: Pending to [facility] Primary Care Physician: Samson Blair DO [Primary Care Provider] - Please follow up with your Primary Care Physician in: within 1-2 weeks Test Results: Test results from this visit will be discussed in further detail at your follow- up appointment, if applicable. Please Follow Up With: Donavan Tyler MD When: in 2 weeks Proposed Discharge Date: 11/06/19
--- NOTE | 2019-11-06 16:01 | DS.PCM_ITS ---
Discharge Date and Diagnosis Date of Admission: 11/03/19 Date of Discharge: 11/06/19 - Primary Discharge Diagnosis Active and Suspected Problems (Last Reviewed 10/04/18 @ 14:[address] Samson Blair, DO) Acute pulmonary cavitary lesions Acute loculated pleural effusion Sepsis secondary to community-acquired pneumonia Uncontrolled Type 2 DM Stasis dermatitis Nicotine dependence - Secondary Discharge Diagnosis Chronic Problems (Last Reviewed 10/04/18 @ 14:[address] Samson Blair, DO) Erectile dysfunction (Chronic) Tobacco abuse (Chronic) Type 2 DM Hospital Course and Treatment Imaging Results: Clinical Impression(s) from Imaging Studies Chest X-Ray 11/03/19 05:00 IMPRESSION: 3.6 cm oval lesion right lateral midlung, suspicious for a cavitary mass. Moderate left pleural effusion with adjacent atelectasis. CT chest with IV contrast recommended to more definitively evaluate these findings. Electronically Signed: Rocky Handy at 5:33 EDT Tel , Service support , ADDENDUM: 11/03/19 0543 IMPRESSION: 3.6 cm oval lesion right lateral midlung, suspicious for a cavitary mass. Moderate left pleural effusion with adjacent atelectasis. CT chest with IV contrast recommended to more definitively evaluate these findings. N.B. : Bart Mcwilliams MD, confirmed on 11/03/2019 05:36:02 (ET) that the referring physician received the radiology report. Electronically Signed: Rocky Handy at 5:33 EDT Tel , Service support , Chest CT 11/03/19 05:51 IMPRESSION: 2 cavitary lesions in the right upper lobe, largest 3.9 cm diameter. Differential includes cavitary bacterial pneumonia, tuberculosis, metastatic disease, with noninfectious inflammatory process less likely. Pleural-based lesion lateral segment right middle lobe may represent an additional noncavitary nodule or rounded atelectasis/scarring. Likely loculated small left pleural effusion. Mild mediastinal and right hilar lymphadenopathy. Underlying mild emphysema and bronchitis. Electronically Signed: Rocky Handy at 6:33 EDT Tel , Service support , Chest X-Ray 11/04/19 05:55 IMPRESSION: No significant change. Electronically Signed: Rocky Handy, at 7:41 EDT Tel , Service support , Chest Ultrasound 11/04/19 11:40 IMPRESSION: Minimal amount of left pleural fluid. Underlying left basilar atelectasis and/or infiltrate. Electronically Signed: Pravin Bonecassandraedouard, at 15:36 EDT , Service support , ID Pulmonology Operations: None Procedures: None Summary of Care Provided: The patient is a 54 year old M with PMHx of nicotine dependence who comes in with complaints of cough, productive of brownish sputum, blood-tinged. He had complained of chest congestion ongoing for 1 week and progressive shortness of breath ongoing for 1 day. He has stopped smoking 2 days prior to admission. In the emergency department, chest x-ray showed a cavitary lesion in the right lateral midlung, which was about 3.6 cm with moderate left pleural effusion with adjacent atelectasis. Subsequent CT of the chest showed 2 cavitary lesion in the right upper lobe with the largest being 3.9 cm in diameter. There was an additional pleural-based lesion in the lateral aspect of the right middle lobe which was non-cavitary. Patient was admitted today telemetry floor, started on antibiotics. Pulmonology and infectious disease were consulted. Patient was ruled out of TB with 2- sputum for AFB's tests. He continued to improve. He was discharged on Keflex, Augmentin and Bactrim. At the time of discharge, sputum cultures for AFB were pending. 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 He knows that he will need repeat CAT scan in 6 to 8 weeks. He did not qualify for oxygen on ambulation. Subjective: On the day of discharge, patient was seen an examined. He feels improved. Denies any chest pain, dizziness, palpitations Objective: Physical exam: General: Alert, Oriented x3, Cooperative, in mild distress, Well developed, Well nourished HEENT: Atraumatic, PERRLA, EOMI, Normocephalic Oral: Moist Mucosa Neck: Supple, No JVD, Negative Carotid Bruits, Trachea Midline, Thyroid Normal Size and Texture Lungs: Diminished - Diminished breath sounds are noted over the left base Cardiovascular: Regular rate, Regular Rhythm, Normal S1, Normal S2, No murmurs, Tachycardic Abdomen: Bowel Sounds Present, Soft, Non Tender, Non-Distended, No hernias noted Extremities: Edema - Mild pitting edema is noted over the patient's lower legs Skin: Rash Present - Stasis dermatitis changes are noted over patient's lower legs bilaterally Musculoskeletal: No Tenderness to Palpation of Joints or Extremities Neurological: Cranial nerves II-XII grossly intact, Neuro grossly intact, Sensory exam intact to light touch and pain Psych/Mental Status: Normal Affect, Appropriate, Alert and oriented to time, place, person, mood and affect - Physical Exam Vitals/I&O's: Vital Signs Temp Pulse Resp BP Pulse Ox 98.2 F 110 H 20 H 141/82 H 95 11/06/19 13:56 11/06/19 14:59 11/06/19 14:14 11/06/19 13:56 11/06/19 14:14 Oxygen Delivery Method Room Air Weight: 111.2 kg Body Mass Index (BMI) 33.2 Intake and Output for Last 24 Hours 11/04/19 11/05/19 11/06/19 23:59 23:59 23:59 Intake Total 2200 / 2200 2794 / 2794 1316 / 1316 Balance 2200 / 2200 2794 / 2794 1316 / 1316 Microbiology Past 72 Hours 11/03/19 05:03 Blood Culture (Wb) - Anticubital Left Blood Culture - Preliminary No growth in 48 hours. 11/03/19 05:05 Blood Culture (Wb) - Left Hand Blood Culture - Preliminary No growth in 48 hours. 11/03/19 06:15 Sputum, Expectorated/Coughed Gram Stain - Final 11/03/19 06:15 Sputum, Expectorated/Coughed Respiratory Culture - Final Haemophilus influenzae Mixed Maribel 11/03/19 06:15 Urine, Clean Catch Urine Culture - Final Culture exhibits no growth. 11/03/19 07:35 Mucosa - Nasopharyngeal Respiratory Panel (PCR) - Final Laboratory Results 11/05/19 08:51: Acid Fast Stain SEE PATHOLOGY REPORT, Miscellaneous Cytology SEE PATHOLOGY REPORT 11/05/19 16:53: POC Glucose 132 H 11/05/19 21:04: POC Glucose 153 H 11/06/19 06:49: POC Glucose 103 11/06/19 07:35: Vancomycin Trough 8.1 11/06/19 07:35: WBC 15.1 H, RBC 4.88, Hgb 13.3, Hct 42.4, MCV 86.9, MCH 27.3, MCHC 31.4 L, RDW Std Deviation 40.6, RDW Coeff of Corine 13.0, Plt Count 427, MPV 10.1, Immature Gran % (Auto) 0.500, Neut % (Auto) 69.3, Lymph % (Auto) 19.0, [place] % (Auto) 10.0, Eos % (Auto) 0.9, Baso % (Auto) 0.3, Absolute Neuts (auto) 10.5 H, Absolute Lymphs (auto) 2.87, Nucleated RBC % 0, Differential Comment , Diff Path Review May foll, Platelet Estimate ADEQUATE, RBC Morphology NORM C+C 11/06/19 07:35: Sodium 139, Potassium 4.2, Chloride 107, Carbon Dioxide 26.0, Anion Gap 6, BUN 14, Creatinine 0.67 L, Estim Creat Clear Calc 136.73, Est GFR (MDRD) Af Amer 158, Est GFR (MDRD) Non-Af 131, BUN/Creatinine Ratio 20.9 H, Glucose 121 H, Calcium 8.6 11/06/19 11:10: POC Glucose 146 H Current Medications Acetaminophen (Tylenol) 650 mg PO Q4H PRN PRN PRN Reason: pain 1-10, fever Last Admin: 11/06/19 09:25 Dose: 650 mg Documented by: Albuterol Sulfate (Ventolin Aerosols) 2.5 mg INHALATION Q2H PRN PRN PRN Reason: DYSPNEA Albuterol/Ipratropium (Duoneb) 3 ml INHALATION Q4HWA.RT KATHARINE Last Admin: 11/06/19 14:13 Dose: 3 ml Documented by: Dextrose (D50w Syringe) 0 gm IV X1 PRN; Protocol PRN Reason: Hypoglycemia Furosemide (Lasix) 40 mg PO DAILY [facility] Last Admin: 11/06/19 09:18 Dose: 40 mg Documented by: Glucagon () 1 mg IM .X1 PRN PRN Reason: Hypoglycemia Guaifenesin (Mucinex) 1,200 mg PO BID [facility] Last Admin: 11/06/19 09:18 Dose: 1,200 mg Documented by: Heparin Sodium (Porcine) (Heparin Na) 5,000 unit SC Q12 [facility] Last Admin: 11/06/19 09:18 Dose: 5,000 unit Documented by: Vancomycin IV Pharmacy to Dose (1 ea/ Sodium Chloride) 500 mls @ 250 mls/hr IV X1 PRN; Protocol PRN Reason: Rx to Dose Ampicillin Sodium/Sulbactam (Sodium 3 gm/ Sodium Chloride) 112 mls @ 150 mls/hr IV Q6 [facility] Last Infusion: 11/06/19 15:14 Dose: Infused Documented by: Vancomycin HCl 1,750 mg/ (Sodium Chloride) 535 mls @ 250 mls/hr IV Q8H KATHARINE Insulin Human Lispro (Humalog Kwikpen (Bkc)) 0 unit SC ACHS [facility]; Protocol Last Admin: 11/06/19 12:33 Dose: Not Given Documented by: Metformin HCl (Glucophage Xr) 500 mg PO DAILY@1700 [facility] Last Admin: 11/05/19 18:31 Dose: 500 mg Documented by: Morphine Sulfate () 2 mg IV Q4H PRN PRN PRN Reason: severe pain 6-10/10 Last Admin: 11/03/19 22:24 Dose: 2 mg Documented by: Ondansetron HCl (Zofran) 4 mg IV Q8H PRN PRN PRN Reason: NAUSEA/VOMITING Oxycodone HCl (Oxyir) 5 mg PO Q4H PRN PRN PRN Reason: Pain Score 4-10/10 Last Admin: 11/04/19 10:16 Dose: 5 mg Documented by: Sodium Chloride () 10 - 40 ml IV UD PRN PRN Reason: SALINE FLUSH Last Admin: 11/06/19 12:59 Dose: 10 ml Documented by: Discharge Diet: Low fat/ Low Cholesterol, 2000 mg Sodium Diet Discharge Activity: Return to Normal Activity Home Medications: Medications to take at Discharge furosemide 40 mg tablet 40 mg PO DAILY #30 tab 07/04/18 Cephalexin [Keflex] 500 mg PO Q8 #90 cap 11/06/19 Guaifenesin [Mucinex] 1,200 mg PO BID 7 Days #14 tab 11/06/19 Metronidazole [Flagyl] 500 mg PO TID #90 tab 11/06/19 Smz/Tmp Ds [Bactrim Ds] 1 tab PO BID #60 tab 11/06/19 metFORMIN (XR) [Glucophage Xr] 500 mg PO DAILY@1700 30 Days #30 tab 11/06/19 Following Prescrptions Were Given to Patient: Smz/Tmp Ds [Bactrim Ds] 1 tab PO BID #60 tab Transmission Status: Received by [facility] Metronidazole [Flagyl] 500 mg PO TID #90 tab Transmission Status: Received by [facility] metFORMIN (XR) [Glucophage Xr] 500 mg PO DAILY@1700 30 Days #30 tab Transmission Status: Received by [facility] Cephalexin [Keflex] 500 mg PO Q8 #90 cap Transmission Status: Received by [facility] Guaifenesin [Mucinex] 1,200 mg PO BID 7 Days #14 tab Transmission Status: Received by [facility] Primary Care Physician: Samson Blair DO [Primary Care Provider] - Please follow up with your Primary Care Physician in: within 1-2 weeks Please Follow Up With: Donavan Tyler MD When: in 2 weeks Disposition: Home Minutes spent on discharge:: 40 Patient Condition:: Stable Medical Necessity - Tobacco Use Smoking Status: Current every day smoker Tobacco Use: Cigarettes Meaningful Use Info Meaningful Use Diagnoses (Choose all that apply): None applicable Inpatient E&M: [id number] [facility]
[2019-11-07 09:44] LABS: Pathologist Review Reviewed
== END 2019-11-06 17:43 | disposition home or self-care (01) | DRG 871 ==
LOC: ED 06:48 → PCU 08:22
PROVIDERS: Internal Medicine Critical Care Medicine; Internal Medicine Infectious Disease; Admitting Provider Internal Medicine; Emergency Provider Emergency Medicine; PCP Family Medicine; Visit Provider Internal Medicine
DX: A41.9 Sepsis, unspecified organism (principal); J18.9 Pneumonia, unspecified organism; J90 Pleural effusion, not elsewhere classified; J98.11 Atelectasis; J44.0 Chronic obstructive pulmonary disease with (acute) lower respiratory infection; B96.3 Hemophilus influenzae [H. influenzae] as the cause of diseases classified elsewhere; R91.1 Solitary pulmonary nodule; E11.65 Type 2 diabetes mellitus with hyperglycemia; J30.2 Other seasonal allergic rhinitis; F17.210 Nicotine dependence, cigarettes, uncomplicated; I87.2 Venous insufficiency (chronic) (peripheral); N52.9 Male erectile dysfunction, unspecified; Z82.49 Family history of ischemic heart disease and other diseases of the circulatory system; Z80.1 Family history of malignant neoplasm of trachea, bronchus and lung
CPT/HCPCS: 36415; 71045; 71260; 76604; 80048; 80053; 80202; 81001; 82962; 83036; 83605; 83615; 84484; 85025; 85610; 85730; 87015; 87040; 87070; 87077; 87086; 87116; 87205; 87206; 87449; 87633; 88108; 88312; 88313; 93005; 94640; 96361; 96365; 96368; 97802; 99285; 99406; J7030; J7040; Q9967; A4216; J0295

== ENCOUNTER → 2019-11-12 12:30 | Outpatient (CLI) | payer SELFPAY ==
[2019-11-03 09:03] VITALS: BMI 33.2
[2019-11-12 13:55] LABS: Hematocrit 49.2 % (40-54); Hemoglobin 15.3 g/dL (13.0-16.5); Mean Corp Hgb Conc 31.1 g/dL (32-36); Mean Corpuscular Hgb 27.2 pg (27.0-32.0); Mean Corpuscular Volume 87.4 fL (80-94); Mean Platelet Vol. 10.3 fl (6.2-12.0); Platelet Count 735 K/mm3 (150-450); RBC Distribution Width CV 13.5 % (11.6-14.6); RBC Distribution Width SD 42.8 fl (35.1-43.9); Red Blood Count 5.63 M/mm3 (4.6-6.2); White Blood Count 18.1 K/mm3 (4.4-11.0)
[2019-11-12 14:18] LABS: Anion Gap 7 (5-15); BUN 18 mg/dL (7-18); BUN/Creat Ratio 19.4 RATIO (10-20); Calcium,Total 9.4 mg/dL (8.5-10.1); Chloride 103 mmol/L (98-107); Creatinine, Serum 0.93 mg/dL (0.70-1.30); EST Glomerular Filtration Rate 90 mL/min (>60); Est Glom Filt Rate - Afr Amer 108 mL/min (>60); Glucose 162 mg/dL (74-106); Potassium 4.2 mmol/L (3.5-5.1); Sodium Level 136 mmol/L (136-145)
== END ==
LOC: LAB 12:33
PROVIDERS: Referring Provider Internal Medicine Infectious Disease; Visit Provider Internal Medicine Infectious Disease
DX: J85.2 Abscess of lung without pneumonia (principal)
CPT/HCPCS: 36415; 80048; 85027

== ENCOUNTER → 2019-11-22 07:46 | Outpatient (CLI) | payer SELFPAY ==
[2019-11-18 07:49] VITALS: BMI 32.5
--- NOTE | 2019-11-22 07:48 | CT_ITS ---
STUDY: CT CHEST WITHOUT CONTRAST REASON FOR EXAM: Male, 54 years old. FOLLOW UP PNEUMONIA, PLEURAL EFFUSION, RML LESION RADIATION DOSAGE (If Supplied By Facility): CTDIvol = ( 18.15 ) mGy, DLP = ( 703.16 ) mGycm TECHNIQUE: Transaxial imaging was performed without the administration of intravenous contrast material. Multiplanar coronal and sagittal images were reformatted. Individualized dose optimization techniques were used for this CT. COMPARISON: Comparison is made with prior examination dated November 03, 2019. FINDINGS: Small benign-appearing bilateral axillary lymph nodes. Stable 1.8 cm x 1.2 cm slightly inhomogeneous spiculated nodular density in the posterior aspect of the right upper lobe as seen on axial image #40. The previously seen thick-walled cavitary lesion in the high segment of the right upper lobe has decreased in size. It presently measures 1.3 cm x 1 cm. The wall of the cavity is thin and mostly regular in appearance. There has been an improvement in the left pleural effusion. Persistent left lower lobe infiltration with air bronchograms. Persistent mild increased markings in the lateral aspect of the lingular segment of the left upper lobe although there has been improvement as compared to prior study. Minimal pericardial thickening. There are multiple small lymph nodes within the mediastinum, which are normal in size and morphology most compatible with reactive lymph hyperplasia. Normal hilar regions. Normal unenhanced pulmonary arteries. There is atherosclerotic calcification of the aortic arch . There are mild degenerative changes of the thoracic spine. Stable hyperplasia of the adrenal glands bilaterally. CT/Chest without Contrast IMPRESSION: The previously seen cavitary lesion in the right upper lobe has improved with a decreased size and decreased thickness of the cavitary wall. Stable appearance of the spiculated nodule in the right upper lobe. Residual pleural parenchymal changes at the left lung base although there has been improvement. Further radiographic follow-up is recommended. Electronically Signed: Pravin Nielsen, at 8:58 EDT , Service support ,
== END ==
PROVIDERS: PCP Family Medicine; Referring Provider Nurse Practitioner Acute Care; Visit Provider Nurse Practitioner Acute Care
DX: J98.4 Other disorders of lung (principal)
CPT/HCPCS: 71250

== ENCOUNTER → 2019-12-05 09:06 | Outpatient (CLI) | payer SELFPAY ==
[2019-11-18 07:49] VITALS: BMI 32.5
--- NOTE | 2019-12-05 12:44 | PFTCOMP ---
COMPLETE PULMONARY FUNCTION TEST INTERPRETATION Brief HPI: Patient is a 54 year old male, currently under the care of myself, who presents to [facility] for complete pulmonary function tests secondary to diagnosis of dyspnea. Respiratory therapist reports good effort and reproducible results. Interpretation: Forced expiration spirometry shows a moderately severe large airways obstructive ventilatory defect with an FEV1 of 52% predicted. There is no significant bronchodilator response by strict ATS criteria. Spirograms are of good quality and plateau slowly, indicating slowly emptying areas of the lungs. The respiratory flow volume loop shows decreased expiratory flow rates at all lung volumes consistent with airway obstruction. Lung volumes by body plethysmography show a decreased total lung capacity at 5.1 L, 71% predicted. All other lung volumes are reduced symmetrically. Diffusion capacity by carbon monoxide is normal at 81% predicted. The airway resistance is elevated. No previous pulmonary function tests were available for review. Impression: Moderately severe mixed ventilatory defect without significant response to bronchodilators
== END ==
PROVIDERS: PCP Family Medicine; Referring Provider Nurse Practitioner Acute Care; Visit Provider Nurse Practitioner Acute Care
DX: J85.2 Abscess of lung without pneumonia (principal)
CPT/HCPCS: 94060; 94726; 94729

== ENCOUNTER 2024-05-22 18:10 | Emergency (ER) | payer SELFPAY ==
[2024-05-22 18:31] VITALS: BP 0/0; PULSE 0; RESP 0; O2SAT 71
[2024-05-22 18:35] VITALS: BP 0/0; TEMP -17.7; TEMP 0; BMI 35.4
--- NOTE | 2024-05-22 18:36 | EDS_ITS ---
HPI History of Present Illness Chief Complaint: CPR Informant: patient Narrative Narrative: Patient is a 59-year-old male with history of pleural effusions and tobacco abuse presenting via EMS as a cardiac arrest. Per EMS report patient may complain of indigestion for the past 3 days. He was at work when he collapsed. Bystander CPR was started and CPR is in progress approximately 25 minutes prior to arrival. EMS states when they arrived he was in PEA. He received a total of 5 A of epinephrine. 5 minutes prior to arrival he was in V-fib and was defibrillated but then went back into PEA. Blood sugar was in the 200s per EMS. No further information available at this time. LMA airway in place. [facility] Medical History (Updated 05/22/24 @ 18:[address] Velma Ca DO) Chest congestion Cough productive of purulent sputum Sinus tachycardia by electrocardiogram Acute hyperglycemia Sepsis without acute organ dysfunction Loculated pleural effusion Pulmonary cavitary lesion Erectile dysfunction Tobacco abuse Seasonal allergies Home Medications ?Medication ?Instructions ?Recorded ?Last Taken ?Type cephalexin 500 mg capsule 500 mg PO Q8 #90 caps 11/06/19 Unknown Rx metronidazole 500 mg tablet 500 mg PO TID #90 tabs 11/06/19 Unknown Rx sulfamethoxazole 800 1 tab PO BID #60 tabs 11/06/19 Unknown Rx mg-trimethoprim 160 mg tablet guaifenesin 600 mg tablet, 600 mg PO BID 11/18/19 Unknown History extended release 12 hr (Mucinex) furosemide 40 mg tablet 40 mg PO DAILY #30 tabs 02/25/20 Unknown Rx Allergy/AdvReac Type Severity Reaction Status Date / Time No Known Allergies Allergy Verified 11/18/19 09:52 Family History Father Cancer Mother Hypertension Surgical History No pertinent past surgical history Social History Smoking Status: Unknown if ever smoked Tobacco: How many years used: 35 Electronic Cigarette Use: not used alcohol intake: never substance use type: does not use what type of physical activity do you participate in: none ROS ROS ED Review of Systems ROS Unobtainable: other Details: Acuity of condition, cardiac arrest EXAM Physical Exam Const Vital Signs: 05/22/24 18:31 05/22/24 18:35 05/22/24 18:47 Temperature 0 F L Temperature Source Oral Pulse Rate 0 L Respiratory Rate 0 L Respiratory Effort Blood Pressure 0/0 L 0/0 L Pulse Ox 71 Oxygen Delivery Method Ambu-Bag Ambu-Bag Oxygen Flow Rate (L/min) 15 05/22/24 18:56 Temperature Temperature Source Pulse Rate Respiratory Rate Respiratory Effort Mechanically Ventilated Blood Pressure Pulse Ox Oxygen Delivery Method Oxygen Flow Rate (L/min) Positive obese Constitutional Narrative: CPR in progress Nutritional Appearance: obese HEENT HEENT Narrative: Thick secretions noted in the oropharynx normocephalic and atraumatic Eyes Eyes Narrative: Pupils fixed, nonreactive Neck supple and no JVD Chest Wall Chest Narrative: No obvious deformity, chest compressions in process Resp Resp Narrative: No spontaneous respirations, breath sounds appreciated bilaterally with bagging Cardio Cardio Narrative: Carotid and femoral pulses appreciated with chest compressions GI GI Narrative: Protuberant abdomen, no pulsatile mass appreciated Extremity Extremity Narrative: No edema appreciated Neuro Neuro Narrative: GS = 3?unresponsive Skin Skin Narrative: Lay appearing MDM MDM MDM Narrative Medical decision making narrative: Patient arrives as a cardiac arrest with CPR in progress. ACS protocol is followed. Patient is asystole in the emergency room. He is given an amp of bicarb and further to amps of epinephrine per ACLS protocol. Airway secured with intubation, see procedure note. End-tidal CO2 is 18 with chest compressions. Bedside ultrasound shows no spontaneous cardiac cavity. At this time I feel that further resuscitative measures are futile. Time of called at 1820. I spoke with the patient's , Azeb over the phone. Informed him of her 's . She will arrange a ride to the emergency room. 2027-life is at the bedside. She is declining any donation to life bank. Has been to home. She is appropriately distraught. Procedures Intubations Intubation Method: orotracheal (7.5 ET tube used. Other lab secretions in the oropharynx was her suction. 4-0 Mac blade with video assistance utilized. A good view of the cords. 23 at the lip.) Intubation Verification: Positive color change and Bilateral breath sounds confirmed Intubation Complications: no complications Discharge Plan Triage Chief Complaint: CPR ED Provider: Velma Ca Dx/Rx/DC Orders Clinical Impression: Cardiac arrest Prescriptions: No Action guaifenesin [Mucinex] 600 mg tablet extended release 12hr 600 mg PO BID sulfamethoxazole-trimethoprim 1 TABLET tablet 1 tab PO BID Qty: 60 0RF cephalexin 500 MG capsule 500 mg PO Q8 Qty: 90 0RF metronidazole 500 MG tablet 500 mg PO TID Qty: 90 0RF furosemide 40 mg tablet 40 mg PO DAILY Qty: 30 6RF Primary Care Provider: Samson Blair Referrals: Samson Blair DO [Primary Care Provider] - Print Language: Chinese Disposition Disposition:
--- NOTE | 2024-05-22 18:57 | NURSING ---
700 mls of normal saline given
--- NOTE | 2024-05-22 20:20 | ED.RN ---
entered by error
== END 2024-05-22 20:51 ==
PROVIDERS: Emergency Provider Emergency Medicine; PCP Family Medicine; Visit Provider Emergency Medicine
DX: I46.9 Cardiac arrest, cause unspecified (principal)
CPT/HCPCS: 31500; 99282

== ENCOUNTER → 2024-05-22 | Emergency (ER) | payer SELFPAY | DX: I46.9 Cardiac arrest, cause unspecified (principal) | CPT/HCPCS: 31500; 92950 ==